=== PATIENT | male | born 1950 | race Caucasian/White ===

== ENCOUNTER 2017-09-16 11:43 | Emergency (ER) | payer BC ==
[~2017-09-16] VITALS: Ht 182.9 cm; Wt 83.9 kg
[~2017-09-16 11:43] MED LIST: ALBU90OI6 INH; AMOCLA875 PO; BENZ100A; BISA5EC PO; ESOM20 PO; FERR325 PO; FLUSAL1005 INH; Flonase 0.05% N16 GM; HYDACE5 PO; HYDACE7.5 PO; LEVFLO500 PO; LEVSOD75; LEVSOD75 PO; LEVSOD88 PO; LORA1 PO; METR500 PO; NEXIUM 40MG PO; RABE20; RXHYDACE PO; RXPROM25 PO; TRAZ50 PO; VITAMIN B12 PO; VITAMIN C PO; VITAMIN D PO; WARF10 PO; [UNRECOGNIZED DRUG - OTHER]
[2017-09-16] MEDS ORDERED: IBUP800 PO (12:26)
[2017-09-16] MEDS ORDERED: Prednisone20 MG PO (12:26)
== END 2017-09-16 13:08 | disposition home or self-care (01) ==
LOC: ER 11:43
DX: G89.29 Other chronic pain (principal); M54.5 Low back pain; J45.909 Unspecified asthma, uncomplicated; Z88.0 Allergy status to penicillin; Z88.2 Allergy status to sulfonamides; Z88.1 Allergy status to other antibiotic agents; Z88.8 Allergy status to other drugs, medicaments and biological substances; Z79.899 Other long term (current) drug therapy
CPT/HCPCS: 96372; 99283; J1885

== ENCOUNTER 2017-12-12 19:55 | Inpatient (IN) | payer BC, MEDICARE ==
[~2017-12-12] VITALS: Ht 182.9 cm; Wt 84.3 kg
[~2017-12-12 19:55] MED LIST changes: +IBUP800 PO; +Prednisone20 MG PO
[2017-12-12 20:31] LABS: BASOPHILS ABSOLUTE AUTO 0.07 K/mm3 (0.00-0.23); BASOPHILS PERCENT AUTO 0 % (0-2); EOSINOPHILS ABSOLUTE AUTO 0.07 K/mm3 (0.00-0.68); EOSINOPHILS PERCENT AUTO 0 % (0-6); Hematocrit 51.1 % (37.0-53.0); Hemoglobin 17.6 g/dL (13.5-17.5); IMMATURE GRAN ABSOLUTE AUTO 0.06 K/mm3 (0.00-0.10); IMMATURE GRAN PERCENT AUTO 0 % (0-1); LYMPHOCYTES ABSOLUTE AUTO 0.92 K/mm3 (0.84-5.20); LYMPHOCYTES PERCENT AUTO 6 % (21-46); MONOCYTES ABSOLUTE AUTO 0.79 K/mm3 (0.16-1.47); MONOCYTES PERCENT AUTO 5 % (4-13); Mean Corpuscular HGB 31.3 pg (26.0-34.0); Mean Corpuscular HGB Conc 34.4 g/dL (31.5-36.5); Mean Corpuscular Volume 91 fL (80-100); NEUTROPHILS ABSOLUTE AUTO 13.69 K/mm3 (1.96-9.15); NEUTROPHILS PERCENT AUTO 88 % (41-73); Platelet Count 373 K/mm3 (150-400); RDW Coefficient Variation 12.6 % (11.7-14.2); RDW Standard Deviation 42.1 fL (35.1-46.3); Red Blood Cell Count 5.62 M/mm3 (4.30-5.90)
[2017-12-12 20:53] LABS: Alanine Aminotransfer (ALT/SGP 29 U/L (12-78); Albumin, Blood 4.4 g/dL (3.4-5.0); Albumin/Globulin Ratio 1.1 (0.8-1.8); Alk Phos 87 U/L (50-136); Anion Gap 10 mmol/L (6-16); Aspartate Aminotrans (AST/SGOT 23 U/L (12-37); Bilirubin, Total 0.9 mg/dL (0.1-1.0); Blood Urea Nitrogen 25 mg/dL (8-24); CO2, Blood 24 mmol/L (21-32); Calcium, Blood 9.4 mg/dL (8.5-10.1); Chloride, Blood 106 mmol/L (98-108); Creatinine, Blood 1.19 mg/dL (0.60-1.20); Globulin, Blood 3.9 g/dL (2.2-4.0); Glomerular Filtration Rate >60 (60-); Glucose, Blood 131 mg/dL (70-99); Potassium, Blood 4.4 mmol/L (3.5-5.5); Sodium, Blood 140 mmol/L (136-145); Total Protein, Blood 8.3 g/dL (6.4-8.2)
[2017-12-12] MEDS ORDERED: ELIQUIS2.5 MG PO (21:11)
[2017-12-13 03:48] LABS: Hematocrit 49.5 % (37.0-53.0); Hemoglobin 16.5 g/dL (13.5-17.5); Mean Corpuscular HGB 30.3 pg (26.0-34.0); Mean Corpuscular HGB Conc 33.3 g/dL (31.5-36.5); Mean Corpuscular Volume 91 fL (80-100); Mean Platelet Volume 10.1 fL (9.1-12.4); Platelet Count 353 K/mm3 (150-400); RDW Coefficient Variation 12.7 % (11.7-14.2); RDW Standard Deviation 41.9 fL (35.1-46.3); Red Blood Cell Count 5.45 M/mm3 (4.30-5.90); White Blood Cell Count 14.48 K/mm3 (4.00-11.30)
[2017-12-13 04:05] LABS: Anion Gap 7 mmol/L (6-16); Blood Urea Nitrogen 24 mg/dL (8-24); Bun/Creatinine Ratio 19.4 (12.0-20.0); CO2, Blood 28 mmol/L (21-32); Calcium, Blood 8.6 mg/dL (8.5-10.1); Chloride, Blood 106 mmol/L (98-108); Creatinine, Blood 1.24 mg/dL (0.60-1.20); Glomerular Filtration Rate >60 (60-); Glucose, Blood 138 mg/dL (70-99); Potassium, Blood 4.5 mmol/L (3.5-5.5); Sodium, Blood 141 mmol/L (136-145)
[2017-12-14 04:20] LABS: BASOPHILS ABSOLUTE AUTO 0.06 K/mm3 (0.00-0.23); BASOPHILS PERCENT AUTO 1 % (0-2); EOSINOPHILS ABSOLUTE AUTO 0.33 K/mm3 (0.00-0.68); EOSINOPHILS PERCENT AUTO 3 % (0-6); Hematocrit 45.8 % (37.0-53.0); Hemoglobin 15.3 g/dL (13.5-17.5); IMMATURE GRAN ABSOLUTE AUTO 0.04 K/mm3 (0.00-0.10); IMMATURE GRAN PERCENT AUTO 0 % (0-1); LYMPHOCYTES ABSOLUTE AUTO 1.05 K/mm3 (0.84-5.20); LYMPHOCYTES PERCENT AUTO 11 % (21-46); MONOCYTES ABSOLUTE AUTO 0.73 K/mm3 (0.16-1.47); MONOCYTES PERCENT AUTO 8 % (4-13); Mean Corpuscular HGB 31.1 pg (26.0-34.0); Mean Corpuscular HGB Conc 33.4 g/dL (31.5-36.5); Mean Corpuscular Volume 93 fL (80-100); Mean Platelet Volume 9.9 fL (9.1-12.4); NEUTROPHILS PERCENT AUTO 77 % (41-73); Platelet Count 285 K/mm3 (150-400); RDW Coefficient Variation 12.7 % (11.7-14.2); RDW Standard Deviation 43.3 fL (35.1-46.3); Red Blood Cell Count 4.92 M/mm3 (4.30-5.90); White Blood Cell Count 9.61 K/mm3 (4.00-11.30)
[2017-12-14 04:58] LABS: Alanine Aminotransfer (ALT/SGP 28 U/L (12-78); Albumin, Blood 3.1 g/dL (3.4-5.0); Albumin/Globulin Ratio 1.1 (0.8-1.8); Alk Phos 68 U/L (50-136); Anion Gap 7 mmol/L (6-16); Aspartate Aminotrans (AST/SGOT 17 U/L (12-37); Bilirubin, Total 1.2 mg/dL (0.1-1.0); Blood Urea Nitrogen 23 mg/dL (8-24); Bun/Creatinine Ratio 19.8 (12.0-20.0); CO2, Blood 24 mmol/L (21-32); Calcium, Blood 7.9 mg/dL (8.5-10.1); Chloride, Blood 112 mmol/L (98-108); Creatinine, Blood 1.16 mg/dL (0.60-1.20); Globulin, Blood 2.9 g/dL (2.2-4.0); Glomerular Filtration Rate >60 (60-); Glucose, Blood 98 mg/dL (70-99); Potassium, Blood 4.5 mmol/L (3.5-5.5); Sodium, Blood 143 mmol/L (136-145)
== END 2017-12-14 14:50 | disposition home or self-care (01) | DRG 390 ==
LOC: ER 19:55 → SURS 12-13 01:39
PROVIDERS: Family Medicine; Internal Medicine
DX: K91.30 Postprocedural intestinal obstruction, unspecified as to partial versus complete (principal); D72.829 Elevated white blood cell count, unspecified; E03.9 Hypothyroidism, unspecified; N18.3 Chronic kidney disease, stage 3 (moderate); I25.2 Old myocardial infarction; Z79.899 Other long term (current) drug therapy; Z85.038 Personal history of other malignant neoplasm of large intestine; Z90.49 Acquired absence of other specified parts of digestive tract; Z86.718 Personal history of other venous thrombosis and embolism; Z85.09 Personal history of malignant neoplasm of other digestive organs; Z88.0 Allergy status to penicillin; Z88.1 Allergy status to other antibiotic agents; Z88.8 Allergy status to other drugs, medicaments and biological substances; Z88.2 Allergy status to sulfonamides; Z85.828 Personal history of other malignant neoplasm of skin
CPT/HCPCS: 36415; 74018; 74177; 80048; 80053; 83690; 85025; 85027; 93005; 93010; 96361; 96374; 96375; 96376; 99285; J1650; J2405; J2765; J3010; J3480; J7030; Q9967

== ENCOUNTER 2019-04-28 23:20 | Inpatient (IN) | payer MEDICARE, BC ==
[~2019-04-28] VITALS: Ht 182.9 cm; Wt 84.4 kg
[~2019-04-28 23:20] MED LIST changes: +ELIQUIS2.5 MG PO; +Kristalose20 GM PO; +Miralax17 GM PO
[2019-04-29 00:11] LABS: BASOPHILS ABSOLUTE AUTO 0.06 K/mm3 (0.00-0.23); BASOPHILS PERCENT AUTO 0 % (0-2); EOSINOPHILS ABSOLUTE AUTO 0.11 K/mm3 (0.00-0.68); EOSINOPHILS PERCENT AUTO 1 % (0-6); Hematocrit 51.3 % (37.0-53.0); Hemoglobin 17.1 g/dL (13.5-17.5); IMMATURE GRAN ABSOLUTE AUTO 0.06 K/mm3 (0.00-0.10); IMMATURE GRAN PERCENT AUTO 0 % (0-1); LYMPHOCYTES ABSOLUTE AUTO 0.86 K/mm3 (0.84-5.20); LYMPHOCYTES PERCENT AUTO 6 % (21-46); MONOCYTES ABSOLUTE AUTO 0.76 K/mm3 (0.16-1.47); MONOCYTES PERCENT AUTO 5 % (4-13); Mean Corpuscular HGB 31.8 pg (26.0-34.0); Mean Corpuscular HGB Conc 33.3 g/dL (31.5-36.5); Mean Corpuscular Volume 95 fL (80-100); Mean Platelet Volume 10.3 fL (9.1-12.4); NEUTROPHILS ABSOLUTE AUTO 13.47 K/mm3 (1.96-9.15); NEUTROPHILS PERCENT AUTO 88 % (41-73); Platelet Count 352 K/mm3 (150-400); RDW Coefficient Variation 12.6 % (11.7-14.2); RDW Standard Deviation 44.6 fL (35.1-46.3); Red Blood Cell Count 5.38 M/mm3 (4.30-5.90); White Blood Cell Count 15.32 K/mm3 (4.00-11.30)
[2019-04-29 00:29] LABS: Albumin, Blood 4.4 g/dL (3.4-5.0); Albumin/Globulin Ratio 1.2 (0.8-1.8); Bilirubin, Total 0.8 mg/dL (0.1-1.0); Bun/Creatinine Ratio 22.9 (12.0-20.0); Calcium, Blood 10.2 mg/dL (8.5-10.1); Creatinine, Blood 1.31 mg/dL (0.60-1.20); Globulin, Blood 3.8 g/dL (2.2-4.0); Potassium, Blood 4.2 mmol/L (3.5-5.5); Total Protein, Blood 8.2 g/dL (6.4-8.2)
--- NOTE | 2019-04-29 02:00 | NUR ---
PT ADMITTED FROM ED FOR SBO. A&O X4. VSS. PT C/O OF NAUSEA. NO EMESIS. C/O 12/17 PAIN IN ABD. WILL MEDICATE WITH FENTANYL PER EMAR. PT ORIENTED TO ROOM AND EDUCATED ALLIANCE MANAGER LIGHT. AT BEDSIDE. NPO WITH FLUIDS INFUSING.
--- NOTE | 2019-04-29 08:05 | NUR ---
lab at bedside pt asked when surgeon will be by will look at surg sched pt stated no flatus no emesis since er pt has tympanic bt's stated she has been able to hear them
[2019-04-29 08:21] LABS: BASOPHILS ABSOLUTE AUTO 0.06 K/mm3 (0.00-0.23); BASOPHILS PERCENT AUTO 0 % (0-2); EOSINOPHILS ABSOLUTE AUTO 0.05 K/mm3 (0.00-0.68); EOSINOPHILS PERCENT AUTO 0 % (0-6); Hemoglobin 15.3 g/dL (13.5-17.5); IMMATURE GRAN ABSOLUTE AUTO 0.06 K/mm3 (0.00-0.10); IMMATURE GRAN PERCENT AUTO 0 % (0-1); LYMPHOCYTES ABSOLUTE AUTO 0.63 K/mm3 (0.84-5.20); LYMPHOCYTES PERCENT AUTO 4 % (21-46); MONOCYTES ABSOLUTE AUTO 0.83 K/mm3 (0.16-1.47); MONOCYTES PERCENT AUTO 6 % (4-13); Mean Corpuscular HGB 31.3 pg (26.0-34.0); Mean Corpuscular HGB Conc 33.3 g/dL (31.5-36.5); Mean Corpuscular Volume 94 fL (80-100); Mean Platelet Volume 10.6 fL (9.1-12.4); NEUTROPHILS ABSOLUTE AUTO 13.07 K/mm3 (1.96-9.15); NEUTROPHILS PERCENT AUTO 89 % (41-73); Platelet Count 311 K/mm3 (150-400); RDW Coefficient Variation 12.6 % (11.7-14.2); RDW Standard Deviation 43.8 fL (35.1-46.3); Red Blood Cell Count 4.89 M/mm3 (4.30-5.90)
--- NOTE | 2019-04-29 09:53 | NUR ---
dr preston by to see pt
--- NOTE | 2019-04-29 11:42 | NUR ---
dr preston called pt only has marisel rabago stated he may throw that uo req iv
[2019-04-29 13:21] LABS: Anion Gap 3 mmol/L (6-16); Blood Urea Nitrogen 28 mg/dL (8-24); Bun/Creatinine Ratio 22.2 (12.0-20.0); CO2, Blood 27 mmol/L (21-32); Calcium, Blood 8.3 mg/dL (8.5-10.1); Chloride, Blood 112 mmol/L (98-108); Creatinine, Blood 1.26 mg/dL (0.60-1.20); Glomerular Filtration Rate >60 (60-); Glucose, Blood 108 mg/dL (70-99); Potassium, Blood 4.4 mmol/L (3.5-5.5); Sodium, Blood 142 mmol/L (136-145)
--- NOTE | 2019-04-29 14:45 | NUR ---
dr trimble by to see pt will cont with current therapy pt also talked with me her [facility] er visit she said she has his card with his name told her to bring it in and i will have pt advoacate come and talk with them
--- NOTE | 2019-04-29 15:44 | NUR ---
pt visiting with his family tortrung given
--- NOTE | 2019-04-29 16:35 | NUR ---
PT SLEEPING WAKES TO VERBAL STIMULI MEDS GIVEN SCHED PT STATED HE HAS PASSED MORE GAS NO BM YET OFFERED NAUSEA MEDS DECLINED AT THIS TIME
--- NOTE | 2019-04-30 06:28 | NUR ---
SUMMARY PT NOT WANTING TO TAKE PAIN MEDS TONIGHT. WARM BLANKET TO ABD IMPROVED COMFORT LEVEL.PASSING FLATUS AND REPORTED PASSED 2 SMALL PIECES PELLETTED STOOL TODAY.NO C/O NAUSEA. VOIDING MANUEL URINE.ENC AMBULATE FOR BSC DURING DAY PT WANTING TO REST AT NIGHT. AT BEDSIDE. SUPPPORTIVE.
[2019-04-30 07:57] LABS: BASOPHILS ABSOLUTE AUTO 0.05 K/mm3 (0.00-0.23); BASOPHILS PERCENT AUTO 1 % (0-2); EOSINOPHILS ABSOLUTE AUTO 0.42 K/mm3 (0.00-0.68); EOSINOPHILS PERCENT AUTO 6 % (0-6); Hematocrit 43.3 % (37.0-53.0); IMMATURE GRAN ABSOLUTE AUTO 0.01 K/mm3 (0.00-0.10); IMMATURE GRAN PERCENT AUTO 0 % (0-1); LYMPHOCYTES ABSOLUTE AUTO 1.79 K/mm3 (0.84-5.20); LYMPHOCYTES PERCENT AUTO 26 % (21-46); MONOCYTES PERCENT AUTO 10 % (4-13); Mean Corpuscular HGB 30.8 pg (26.0-34.0); Mean Corpuscular HGB Conc 32.3 g/dL (31.5-36.5); Mean Corpuscular Volume 95 fL (80-100); Mean Platelet Volume 10.4 fL (9.1-12.4); NEUTROPHILS ABSOLUTE AUTO 3.93 K/mm3 (1.96-9.15); NEUTROPHILS PERCENT AUTO 57 % (41-73); Platelet Count 278 K/mm3 (150-400); RDW Coefficient Variation 12.6 % (11.7-14.2); RDW Standard Deviation 43.8 fL (35.1-46.3); Red Blood Cell Count 4.55 M/mm3 (4.30-5.90)
[2019-04-30 08:21] LABS: Albumin, Blood 2.7 g/dL (3.4-5.0); Bilirubin, Total 0.7 mg/dL (0.1-1.0); Bun/Creatinine Ratio 16.5 (12.0-20.0); Calcium, Blood 7.8 mg/dL (8.5-10.1); Creatinine, Blood 1.27 mg/dL (0.60-1.20); Globulin, Blood 2.8 g/dL (2.2-4.0); Potassium, Blood 4.3 mmol/L (3.5-5.5)
[2019-04-30 09:26] LABS: Total Protein, Blood 5.5 g/dL (6.4-8.2)
--- NOTE | 2019-04-30 14:49 | NUR ---
ROUNDING: DR VÁSQUEZ IN TO SEE PATIENT. PT DESIRES TO DC HOME, DR VÁSQUEZ AGREEABLE. PT IV DC'D. PT TOLERATING REG DIET. PT PASSING FREQUENT LIQUID YELLOW STOOLS.
--- NOTE | 2019-04-30 16:45 | NUR ---
DISCHARGE: PT DC TO HOME AT THIS TIME WITH SPOUSE. PT VERBALIZED UNDERSTANDING OF MEDICATIONS, FOLLOW UP, PROBLEMS TO REPORT AND INSTRUCTIONS. PT LEFT AMBULATORY TO CAR WITH BELONGINGS.
== END 2019-04-30 16:45 | disposition home or self-care (01) | DRG 387 ==
LOC: ER 23:20 → SURS 04-29 01:20
PROVIDERS: Emergency Medicine; Internal Medicine Endocrinology, Diabetes & Metabolism; ADMIT Hospitalist
DX: K50.80 Crohn's disease of both small and large intestine without complications (principal); N18.3 Chronic kidney disease, stage 3 (moderate); E03.9 Hypothyroidism, unspecified; J45.909 Unspecified asthma, uncomplicated; K21.9 Gastro-esophageal reflux disease without esophagitis; E66.3 Overweight; Z68.25 Body mass index [BMI] 25.0-25.9, adult; Z86.718 Personal history of other venous thrombosis and embolism; Z88.0 Allergy status to penicillin; Z88.2 Allergy status to sulfonamides; Z88.8 Allergy status to other drugs, medicaments and biological substances
CPT/HCPCS: 36415; 74018; 74176; 80048; 80053; 85025; 94640; 94760; 96374; 96375; 99284-25; 99285-25; C9113; J1170; J1650; J2405; J2765; J3010; J7030

== ENCOUNTER 2019-09-05 22:42 | Inpatient (IN) | payer MEDICARE, BC ==
[~2019-09-05] VITALS: Ht 182.9 cm; Wt 84.2 kg
[~2019-09-05 22:42] MED LIST changes: +ASCO500 PO; +B-121000 MC3 PO; -LEVSOD88 PO; -VITAMIN B12 PO; -VITAMIN C PO; -VITAMIN D PO; +Vitamin D2000 UNIT PO
[2019-09-06 00:06] LABS: BASOPHILS ABSOLUTE AUTO 0.07 K/mm3 (0.00-0.23); BASOPHILS PERCENT AUTO 0 % (0-2); EOSINOPHILS ABSOLUTE AUTO 0.07 K/mm3 (0.00-0.68); EOSINOPHILS PERCENT AUTO 0 % (0-6); Hematocrit 53.2 % (37.0-53.0); IMMATURE GRAN ABSOLUTE AUTO 0.09 K/mm3 (0.00-0.10); IMMATURE GRAN PERCENT AUTO 1 % (0-1); LYMPHOCYTES ABSOLUTE AUTO 0.71 K/mm3 (0.84-5.20); LYMPHOCYTES PERCENT AUTO 4 % (21-46); MONOCYTES ABSOLUTE AUTO 0.91 K/mm3 (0.16-1.47); MONOCYTES PERCENT AUTO 5 % (4-13); Mean Corpuscular HGB 31.5 pg (26.0-34.0); Mean Corpuscular HGB Conc 33.8 g/dL (31.5-36.5); Mean Corpuscular Volume 93 fL (80-100); Mean Platelet Volume 10.2 fL (9.1-12.4); NEUTROPHILS ABSOLUTE AUTO 16.65 K/mm3 (1.96-9.15); NEUTROPHILS PERCENT AUTO 90 % (41-73); Platelet Count 322 K/mm3 (150-400); RDW Coefficient Variation 12.6 % (11.7-14.2); RDW Standard Deviation 43.5 fL (35.1-46.3); Red Blood Cell Count 5.72 M/mm3 (4.30-5.90)
[2019-09-06 00:24] LABS: Albumin, Blood 4.2 g/dL (3.4-5.0); Albumin/Globulin Ratio 1.1 (0.8-1.8); Bilirubin, Total 0.6 mg/dL (0.1-1.0); Bun/Creatinine Ratio 19.6 (12.0-20.0); Calcium, Blood 10.3 mg/dL (8.5-10.1); Creatinine, Blood 1.38 mg/dL (0.60-1.20); Globulin, Blood 3.8 g/dL (2.2-4.0); Potassium, Blood 4.8 mmol/L (3.5-5.5)
[2019-09-06 01:21] LABS: Source, Urine Clean Catch
[2019-09-06 01:26] LABS: Bilirubin, Urine Neg (Neg); Blood, Urine Neg (Neg); Glucose Qualitative, Urine Neg (Neg); Ketones, Urine 2+ (Neg); Leukocyte Esterase, Urine 1+ (Neg); Nitrite, Urine Neg (Neg); Protein, Urine 2+ (Neg); Urobilinogen, Urine 1+ (Normal)
[2019-09-06 01:33] LABS: Amorphous Light (0-Heavy); Appearance, Urine Hazy (Clear); Bacteria Few /hpf; Color, Urine Yellow (P-Yellow); Granular Casts 25-50 /lpf (0); Mucus Heavy (0-Heavy); Red Blood Cells, Urine Not Seen /hpf (0-2); Squamous Epithelial Cells Rare /hpf (Few); White Blood Cells, Urine 0-2 /hpf (0-5)
[2019-09-06] MEDS ORDERED: FLUT1DIS2 INH (03:55)
[2019-09-06] MEDS ORDERED: Colace100 MG PO (03:59)
[2019-09-06 04:59] LABS: BASOPHILS ABSOLUTE AUTO 0.05 K/mm3 (0.00-0.23); BASOPHILS PERCENT AUTO 0 % (0-2); EOSINOPHILS ABSOLUTE AUTO 0.04 K/mm3 (0.00-0.68); EOSINOPHILS PERCENT AUTO 0 % (0-6); Hematocrit 49.9 % (37.0-53.0); IMMATURE GRAN ABSOLUTE AUTO 0.05 K/mm3 (0.00-0.10); IMMATURE GRAN PERCENT AUTO 0 % (0-1); LYMPHOCYTES ABSOLUTE AUTO 0.99 K/mm3 (0.84-5.20); LYMPHOCYTES PERCENT AUTO 7 % (21-46); MONOCYTES ABSOLUTE AUTO 0.46 K/mm3 (0.16-1.47); MONOCYTES PERCENT AUTO 3 % (4-13); Mean Corpuscular HGB 31.3 pg (26.0-34.0); Mean Corpuscular HGB Conc 34.1 g/dL (31.5-36.5); Mean Corpuscular Volume 92 fL (80-100); Mean Platelet Volume 10.5 fL (9.1-12.4); NEUTROPHILS ABSOLUTE AUTO 13.64 K/mm3 (1.96-9.15); NEUTROPHILS PERCENT AUTO 90 % (41-73); Platelet Count 352 K/mm3 (150-400); RDW Coefficient Variation 12.8 % (11.7-14.2); Red Blood Cell Count 5.44 M/mm3 (4.30-5.90); White Blood Cell Count 15.23 K/mm3 (4.00-11.30)
[2019-09-06 05:15] LABS: International Normalized Ratio 0.95; Prothrombin Time Results 10.2 Sec (9.7-11.5)
[2019-09-06 05:17] LABS: Albumin, Blood 3.8 g/dL (3.4-5.0); Anion Gap 7 mmol/L (6-16); Blood Urea Nitrogen 28 mg/dL (8-24); Bun/Creatinine Ratio 23.9 (12.0-20.0); CO2, Blood 23 mmol/L (21-32); Calcium, Blood 9.4 mg/dL (8.5-10.1); Chloride, Blood 109 mmol/L (98-108); Creatinine, Blood 1.17 mg/dL (0.60-1.20); Glomerular Filtration Rate >60 (60-); Glucose, Blood 147 mg/dL (70-99); Phosphorus, Blood 3.3 mg/dL (2.5-4.9); Potassium, Blood 4.3 mmol/L (3.5-5.5); Sodium, Blood 139 mmol/L (136-145)
--- NOTE | 2019-09-06 06:23 | NUR ---
SHIFT SUMMARY: VSS. AFEB. A/OX4. COMMUNICATES NEEDS APPROPRIATELY. MED X 1 FOR BOTH NAUSEA AND ABD PAIN W/ GOOD EFFECT. BT HYPOACTIVE. ABD TENDER THROUGHOUT W/PALPATION. 1 LARGE EMESIS UPON ARRIVAL TO UNIT. PT UP INDEPENDENTLY IN ROOM. IV FLUIDS AND HEPARIN INFUSING ORDERED. GI CONSULT CALLED TO DR. GONSALVES'S ANSWERING SERVICE. PT ORIENTED TO UNIT. WILL CONT TO MONITOR.
--- NOTE | 2019-09-06 17:07 | NUR ---
SHIFT SUMMARY PT AXO, PLEASANT AND COOPERATIVE WITH CARE. PT COMPLAINED OF ABDOMINAL PRESSURE IN LEFT UPPER AND LOWER QUADRANT AND SHARP PAIN IN LOWER R. QUADRANT OF ABDOMEN. PT ALSO COMPLAINED OF NAUSEA AND VOMITING AND ANXIETY, MEDICATED PER EMAR. NG TUBE PLACED BY DR. MEREDITH WHO ALSO PLACED HIM ON SUCTION. PATIENT CURRENLY ON LOW INTERMITTENT SUCTION. PT HAS HAD 200ML OF LIGHT BROWN FLUID FROM NG TUBE. THERAPEUTIC COMMUNICATION AND ACTIVE LISTENING UTILIZED. PT SLEEPING COMFORTABLY AT THIS TIME. BED IN LOW POSITION, CALL LIGHT WITHIN REACH.
--- NOTE | 2019-09-06 19:49 | NUR ---
RECEIVED CRITICAL PTT NOTIFICATION. PHARMACIST NOTIFIED. REDRAW ORDERED TO VERIFY PTT. HEPARIN DOSE PENDING REDRAW RESULT.
--- NOTE | 2019-09-07 04:01 | NUR ---
SHIFT SUMMARY: VSS. AFEB. A/OX4. COMMUNICATES NEEDS APPROPRIATELY. NGT W/LOW, INTERMITTENT SUCTION PRODUCING MODERATE AMTS OF MEDIUM BROWN LIQUID. PT REMAINS NPO. IV HEPARIN AND LR CONTINUOUSLY ORDERED. PT STATES ABD PAIN HAS IMPROVED BUT CONT TO BE TENDER W/PALPATION- ESPECIALLY IN LUQ AND LLQ. PASSING GAS. BT HYPERACTIVE. FREQUENT HICCUPING. PT ANXIOUS TONIGHT- STATES THE NGT ITSELF AND THE PRESSURE IT PLACES IN HIS NOSE IS VERY IRRITATING AND CAUSES HIM GREAT ANXIETY. ATIVAN ADMINISTERED. HE DOES NOT FEEL HE CAN KEEP NGT IN MUCH LONGER BUT HAS NOT REQUESTED IT BE REMOVED TONIGHT. PT SLEEPING INTERMITTENTLY. WILL CONT TO MONITOR.
[2019-09-07 09:02] LABS: BASOPHILS ABSOLUTE AUTO 0.06 K/mm3 (0.00-0.23); BASOPHILS PERCENT AUTO 1 % (0-2); EOSINOPHILS ABSOLUTE AUTO 0.44 K/mm3 (0.00-0.68); EOSINOPHILS PERCENT AUTO 4 % (0-6); Hematocrit 46.1 % (37.0-53.0); IMMATURE GRAN ABSOLUTE AUTO 0.04 K/mm3 (0.00-0.10); IMMATURE GRAN PERCENT AUTO 0 % (0-1); LYMPHOCYTES ABSOLUTE AUTO 1.88 K/mm3 (0.84-5.20); LYMPHOCYTES PERCENT AUTO 16 % (21-46); MONOCYTES ABSOLUTE AUTO 1.06 K/mm3 (0.16-1.47); MONOCYTES PERCENT AUTO 9 % (4-13); Mean Corpuscular HGB 30.6 pg (26.0-34.0); Mean Corpuscular HGB Conc 32.5 g/dL (31.5-36.5); Mean Corpuscular Volume 94 fL (80-100); Mean Platelet Volume 10.9 fL (9.1-12.4); NEUTROPHILS ABSOLUTE AUTO 8.21 K/mm3 (1.96-9.15); NEUTROPHILS PERCENT AUTO 70 % (41-73); Platelet Count 308 K/mm3 (150-400); RDW Coefficient Variation 12.8 % (11.7-14.2); White Blood Cell Count 11.69 K/mm3 (4.00-11.30)
[2019-09-07 09:10] LABS: Anion Gap 7 mmol/L (6-16); Blood Urea Nitrogen 35 mg/dL (8-24); CO2, Blood 27 mmol/L (21-32); Calcium, Blood 8.5 mg/dL (8.5-10.1); Chloride, Blood 110 mmol/L (98-108); Creatinine, Blood 1.25 mg/dL (0.60-1.20); Glomerular Filtration Rate >60 (60-); Glucose, Blood 108 mg/dL (70-99); Potassium, Blood 3.8 mmol/L (3.5-5.5); Sodium, Blood 144 mmol/L (136-145)
--- NOTE | 2019-09-07 11:00 | NUR ---
PATIENT REQUESTED THIS RN SIT WITH PATIENT AND HOLD HIS HAND, SAID IT PROVIDES COMFORT. THIS RN SAT WITH PATIENT. TALKED ABOUT CARS, FAMILY NAMES, ETC. GIVEN IV ZOFRAN FOR NAUSEA. PATIENT NG LEAKING. REFUSED LINEN CHANGE AT THIS TIME. WILL CHANGE LINEN WHEN PATIENT GOES OUT FOR IMAGING THIS AFTERNOON.
--- NOTE | 2019-09-07 14:59 | NUR ---
PATIENT RETURNED FROM SBFT. NEW ORDERS NOTED FOR CL DIET AND DC NG TUBE
--- NOTE | 2019-09-07 17:59 | NUR ---
SHIFT SUMMARY ASSUMED CARE OF PATIENT AROUND 1400. PATIENT COMPLETED SBFT AND NGT REMOVED. PATIENT HAS HAD MULTIPLE BMS TODAY AND PASSING GAS. TOLERATING CLEAR LIQUID DIET WELL. HEPARIN GTT AND LR CONTINUED FOR TODAY. PATIENT DENIES PAIN AND REPORTS ABDOMEN SOFT AND NOT DISTENDED IN COMPARISON TO PREVIOUS DAY. VSS
[2019-09-08 05:36] LABS: BASOPHILS ABSOLUTE AUTO 0.06 K/mm3 (0.00-0.23); BASOPHILS PERCENT AUTO 1 % (0-2); EOSINOPHILS ABSOLUTE AUTO 0.62 K/mm3 (0.00-0.68); EOSINOPHILS PERCENT AUTO 7 % (0-6); Hematocrit 40.2 % (37.0-53.0); Hemoglobin 13.3 g/dL (13.5-17.5); IMMATURE GRAN ABSOLUTE AUTO 0.03 K/mm3 (0.00-0.10); IMMATURE GRAN PERCENT AUTO 0 % (0-1); LYMPHOCYTES ABSOLUTE AUTO 2.03 K/mm3 (0.84-5.20); LYMPHOCYTES PERCENT AUTO 23 % (21-46); MONOCYTES ABSOLUTE AUTO 0.76 K/mm3 (0.16-1.47); MONOCYTES PERCENT AUTO 8 % (4-13); Mean Corpuscular HGB 30.9 pg (26.0-34.0); Mean Corpuscular HGB Conc 33.1 g/dL (31.5-36.5); Mean Corpuscular Volume 94 fL (80-100); Mean Platelet Volume 10.3 fL (9.1-12.4); NEUTROPHILS ABSOLUTE AUTO 5.54 K/mm3 (1.96-9.15); NEUTROPHILS PERCENT AUTO 61 % (41-73); Platelet Count 239 K/mm3 (150-400); RDW Coefficient Variation 12.7 % (11.7-14.2); RDW Standard Deviation 43.7 fL (35.1-46.3); White Blood Cell Count 9.04 K/mm3 (4.00-11.30)
[2019-09-08 06:06] LABS: Anion Gap 5 mmol/L (6-16); Blood Urea Nitrogen 25 mg/dL (8-24); Bun/Creatinine Ratio 21.7 (12.0-20.0); CO2, Blood 27 mmol/L (21-32); Calcium, Blood 7.9 mg/dL (8.5-10.1); Chloride, Blood 109 mmol/L (98-108); Creatinine, Blood 1.15 mg/dL (0.60-1.20); Glomerular Filtration Rate >60 (60-); Glucose, Blood 97 mg/dL (70-99); Potassium, Blood 3.6 mmol/L (3.5-5.5); Sodium, Blood 141 mmol/L (136-145)
--- NOTE | 2019-09-08 06:26 | NUR ---
SHIFT SUMMARY PATIENT ALERT AND ORIENTED. IV REMOVED FROM RIGHT WRIST DUE TO INFILTRATION AND NEW IV PLACED IN RIGHT UPPER ARM WHICH IS PATENT AND CURRENTLY INFUSING WITH HEPARIN AT 17.5 UNITS/KILOGRAM/HR. IV IN THE RIGHT FOREARM IS PATENT AND INFUSING WITH LACTATED RINGERS AT 100 ML/HR. WAS MEDICATED PER EMAR FOR PAIN WHICH WAS EFFECTIVE AND ALLOWED HIM TO GET SOME DECENT SLEEP OVERNIGHT. BED IN LOWEST POSITION WITH WHEELS LOCKED. CALL LIGHT WITHIN REACH. REPORT GIVEN TO ONCOMING RN.
--- NOTE | 2019-09-08 10:33 | NUR ---
DR YE REQUESTED SURGERY TO BE NOTIFIED R/T PT BEING CLEARED FOR D/C? DR VARGAS'S OFFICE NOTIFIED. DR VARGAS THEN HERE TO SEE PT. VERBAL ORDER GIVEN TO LET DR YE KNOW THAT PT IS CLEARED FOR D/C BY SURGERY.
[2019-09-08] MEDS ORDERED: LEVO-T88 MCG PO (11:05)
--- NOTE | 2019-09-08 13:11 | NUR ---
SHIFT SUMMARY PT RESTING QUIETLY AT START OF SHIFT. NGT REMOVED YESTERDAY. PT TOLERATING CL DIET. UP TO BTHRM HAVING SEVERAL BM'S. HEPARIN DRIP AND LR STILL INFUSING PER EMAR. PT REQUESTING TO ADVANCE DIET AND TAKE A SHOWER. DR YE HERE TO SEE PT AND LATER DR VARGAS. PT CLEARED FOR D/C BY SURGERY AND LATER BY DR YE. PT'S DIET ADVANCED TO FL; PT TOLERATED WELL. PT UP TO SHOWER PRIOR TO D/C AND REPORTED 2 MORE BM'S WITH STOOL. IV SITES D/C'D AND D/C PAPERS DISCUSSED WITH PT. NO NEW MEDICAITONS ORDERED AT D/C. PT ASSISTED OUT TO FAMILY VIA W/C BY LAUNDRETTE OWNER. NO C/O. PT GRATEFUL FOR CARE.
[2019-09-16] MEDS ORDERED: FERSU300 PO (21:51)
== END 2019-09-08 12:20 | disposition home or self-care (01) | DRG 390 ==
LOC: ER 22:42 → MEDS 09-06 03:30 → ENPENDDIS 09-08 11:06 → MEDS 09-08 12:20
PROVIDERS: Emergency Medicine; Family Medicine; ADMIT Family Medicine
DX: K56.51 Intestinal adhesions [bands], with partial obstruction (principal); N18.3 Chronic kidney disease, stage 3 (moderate); E03.9 Hypothyroidism, unspecified; J45.909 Unspecified asthma, uncomplicated; Z86.718 Personal history of other venous thrombosis and embolism; F41.9 Anxiety disorder, unspecified
CPT/HCPCS: 36415; 74176; 74250; 80048; 80053; 80069; 81001; 83690; 85025; 85610; 85730; 87086; 94640; 94760; 96361; 96374; 96375; 99285-25; C9113; J1644; J2060; J2405; J2765; J3010; J7030; J7120

== ENCOUNTER 2019-10-05 22:34 | Inpatient (IN) | payer MEDICARE, BC ==
[~2019-10-05] VITALS: Ht 182.9 cm; Wt 82.2 kg
[~2019-10-05 22:34] MED LIST changes: +Colace100 MG PO; +FERSU300 PO; +FLUT1DIS2 INH; +LEVO-T88 MCG PO
[2019-10-05 23:00] LABS: BASOPHILS ABSOLUTE AUTO 0.11 K/mm3 (0.00-0.23); BASOPHILS PERCENT AUTO 1 % (0-2); EOSINOPHILS ABSOLUTE AUTO 0.25 K/mm3 (0.00-0.68); EOSINOPHILS PERCENT AUTO 2 % (0-6); Hematocrit 52.3 % (37.0-53.0); Hemoglobin 17.4 g/dL (13.5-17.5); IMMATURE GRAN ABSOLUTE AUTO 0.05 K/mm3 (0.00-0.10); IMMATURE GRAN PERCENT AUTO 0 % (0-1); LYMPHOCYTES ABSOLUTE AUTO 1.36 K/mm3 (0.84-5.20); LYMPHOCYTES PERCENT AUTO 10 % (21-46); MONOCYTES ABSOLUTE AUTO 0.85 K/mm3 (0.16-1.47); MONOCYTES PERCENT AUTO 6 % (4-13); Mean Corpuscular HGB Conc 33.3 g/dL (31.5-36.5); Mean Corpuscular Volume 93 fL (80-100); NEUTROPHILS ABSOLUTE AUTO 10.69 K/mm3 (1.96-9.15); NEUTROPHILS PERCENT AUTO 80 % (41-73); Platelet Count 359 K/mm3 (150-400); RDW Coefficient Variation 12.7 % (11.7-14.2); RDW Standard Deviation 43.8 fL (35.1-46.3); Red Blood Cell Count 5.61 M/mm3 (4.30-5.90); White Blood Cell Count 13.31 K/mm3 (4.00-11.30)
[2019-10-05 23:19] LABS: Albumin, Blood 4.3 g/dL (3.4-5.0); Albumin/Globulin Ratio 1.2 (0.8-1.8); Bilirubin, Total 0.6 mg/dL (0.1-1.0); Bun/Creatinine Ratio 22.5 (12.0-20.0); Calcium, Blood 10.1 mg/dL (8.5-10.1); Creatinine, Blood 1.38 mg/dL (0.60-1.20); Globulin, Blood 3.7 g/dL (2.2-4.0); Potassium, Blood 4.5 mmol/L (3.5-5.5)
[2019-10-06 04:59] LABS: Hematocrit 47.6 % (37.0-53.0); Hemoglobin 15.7 g/dL (13.5-17.5); Mean Corpuscular HGB 30.8 pg (26.0-34.0); Mean Corpuscular Volume 93 fL (80-100); Mean Platelet Volume 9.9 fL (9.1-12.4); Platelet Count 296 K/mm3 (150-400); RDW Coefficient Variation 12.8 % (11.7-14.2); RDW Standard Deviation 44.2 fL (35.1-46.3); White Blood Cell Count 11.45 K/mm3 (4.00-11.30)
[2019-10-06 05:29] LABS: Alanine Aminotransfer (ALT/SGP 26 U/L (12-78); Albumin, Blood 3.6 g/dL (3.4-5.0); Albumin/Globulin Ratio 1.2 (0.8-1.8); Alk Phos 63 U/L (50-136); Anion Gap 6 mmol/L (6-16); Aspartate Aminotrans (AST/SGOT 17 U/L (12-37); Bilirubin, Total 0.8 mg/dL (0.1-1.0); Blood Urea Nitrogen 29 mg/dL (8-24); Bun/Creatinine Ratio 25.4 (12.0-20.0); CO2, Blood 25 mmol/L (21-32); Calcium, Blood 8.7 mg/dL (8.5-10.1); Chloride, Blood 109 mmol/L (98-108); Creatinine, Blood 1.14 mg/dL (0.60-1.20); Globulin, Blood 3.1 g/dL (2.2-4.0); Glomerular Filtration Rate >60 (60-); Glucose, Blood 122 mg/dL (70-99); Potassium, Blood 4.4 mmol/L (3.5-5.5); Sodium, Blood 140 mmol/L (136-145); Total Protein, Blood 6.7 g/dL (6.4-8.2)
[2019-10-07 04:56] LABS: BASOPHILS ABSOLUTE AUTO 0.07 K/mm3 (0.00-0.23); BASOPHILS PERCENT AUTO 1 % (0-2); EOSINOPHILS ABSOLUTE AUTO 0.35 K/mm3 (0.00-0.68); EOSINOPHILS PERCENT AUTO 6 % (0-6); Hematocrit 45.6 % (37.0-53.0); Hemoglobin 14.7 g/dL (13.5-17.5); IMMATURE GRAN ABSOLUTE AUTO 0.02 K/mm3 (0.00-0.10); IMMATURE GRAN PERCENT AUTO 0 % (0-1); LYMPHOCYTES ABSOLUTE AUTO 1.64 K/mm3 (0.84-5.20); LYMPHOCYTES PERCENT AUTO 28 % (21-46); MONOCYTES ABSOLUTE AUTO 0.68 K/mm3 (0.16-1.47); MONOCYTES PERCENT AUTO 12 % (4-13); Mean Corpuscular HGB 30.6 pg (26.0-34.0); Mean Corpuscular HGB Conc 32.2 g/dL (31.5-36.5); Mean Corpuscular Volume 95 fL (80-100); Mean Platelet Volume 10.3 fL (9.1-12.4); NEUTROPHILS ABSOLUTE AUTO 3.15 K/mm3 (1.96-9.15); NEUTROPHILS PERCENT AUTO 53 % (41-73); Platelet Count 286 K/mm3 (150-400); RDW Coefficient Variation 12.8 % (11.7-14.2); Red Blood Cell Count 4.81 M/mm3 (4.30-5.90); White Blood Cell Count 5.91 K/mm3 (4.00-11.30)
[2019-10-07] MEDS ORDERED: MIRALAX17 GM PO (11:51)
== END 2019-10-07 12:55 | disposition home or self-care (01) | DRG 390 ==
LOC: ER 22:34 → MEDS 22:36 → ER 10-06 00:44 → MEDS 10-06 00:44 → ENPENDDIS 10-07 11:00 → MEDS 10-07 12:55
PROVIDERS: Physician Assistant; Student in an Organized Health Care Education/Training Program; ADMIT Internal Medicine
PROC: 0D9670Z Drainage of Stomach with Drainage Device, Via Natural or Artificial Opening (ICD-10-PCS; principal; 2019-10-06)
DX: K56.600 Partial intestinal obstruction, unspecified as to cause (principal); K56.7 Ileus, unspecified; N18.3 Chronic kidney disease, stage 3 (moderate); E03.9 Hypothyroidism, unspecified; J45.909 Unspecified asthma, uncomplicated; Z86.718 Personal history of other venous thrombosis and embolism; Z88.0 Allergy status to penicillin; Z88.2 Allergy status to sulfonamides; Z88.8 Allergy status to other drugs, medicaments and biological substances; Z79.01 Long term (current) use of anticoagulants; Z79.51 Long term (current) use of inhaled steroids; Z85.038 Personal history of other malignant neoplasm of large intestine
CPT/HCPCS: 36415; 43752; 74176; 80053; 85025; 85027; 94640; 94760; 96361-59; 96374-59; 96375-59; 96376; 99285-25; G0378; J1170; J1200; J1650; J2405; J3010; J7030

== ENCOUNTER 2020-04-11 19:34 | Emergency (ER) | payer MEDICARE, BC ==
[~2020-04-11] VITALS: Ht 182.9 cm; Wt 83.0 kg
[~2020-04-11 19:34] MED LIST changes: +MIRALAX17 GM PO
[2020-04-11 20:06] LABS: Source, Urine Clean Catch
[2020-04-11 20:09] LABS: Appearance, Urine Cloudy (Clear); Bilirubin, Urine Neg (Neg); Blood, Urine 5+ (Neg); Color, Urine Amber (P-Yellow); Glucose Qualitative, Urine Neg (Neg); Ketones, Urine 1+ (Neg); Leukocyte Esterase, Urine 1+ (Neg); Nitrite, Urine Neg (Neg); Protein, Urine 3+ (Neg); Urobilinogen, Urine NORM (Normal)
[2020-04-11 20:18] LABS: Bacteria Many /hpf; Red Blood Cells, Urine TNTC /hpf (0-2); Squamous Epithelial Cells Few /hpf (Few); Yeast/Fungi Urine Few /hpf
[2020-04-11 22:00] LABS: BASOPHILS ABSOLUTE AUTO 0.08 K/mm3 (0.00-0.23); BASOPHILS PERCENT AUTO 1 % (0-2); EOSINOPHILS ABSOLUTE AUTO 0.28 K/mm3 (0.00-0.68); EOSINOPHILS PERCENT AUTO 4 % (0-6); Hematocrit 46.9 % (37.0-53.0); Hemoglobin 15.4 g/dL (13.5-17.5); IMMATURE GRAN ABSOLUTE AUTO 0.03 K/mm3 (0.00-0.10); IMMATURE GRAN PERCENT AUTO 0 % (0-1); LYMPHOCYTES ABSOLUTE AUTO 1.68 K/mm3 (0.84-5.20); LYMPHOCYTES PERCENT AUTO 22 % (21-46); MONOCYTES ABSOLUTE AUTO 0.79 K/mm3 (0.16-1.47); MONOCYTES PERCENT AUTO 10 % (4-13); Mean Corpuscular HGB 30.7 pg (26.0-34.0); Mean Corpuscular HGB Conc 32.8 g/dL (31.5-36.5); Mean Corpuscular Volume 93 fL (80-100); Mean Platelet Volume 10.1 fL (9.1-12.4); NEUTROPHILS ABSOLUTE AUTO 4.78 K/mm3 (1.96-9.15); NEUTROPHILS PERCENT AUTO 63 % (41-73); Platelet Count 316 K/mm3 (150-400); RDW Coefficient Variation 12.6 % (11.7-14.2); RDW Standard Deviation 43.3 fL (35.1-46.3); Red Blood Cell Count 5.02 M/mm3 (4.30-5.90); White Blood Cell Count 7.64 K/mm3 (4.00-11.30)
[2020-04-11 22:19] LABS: Albumin, Blood 3.7 g/dL (3.4-5.0); Albumin/Globulin Ratio 1.1 (0.8-1.8); Bilirubin, Total 0.3 mg/dL (0.1-1.0); Bun/Creatinine Ratio 20.9 (12.0-20.0); Creatinine, Blood 1.34 mg/dL (0.60-1.20); Globulin, Blood 3.3 g/dL (2.2-4.0)
[2020-04-11] MEDS ORDERED: NITR100CA PO (22:32)
== END 2020-04-11 22:55 | disposition home or self-care (01) ==
LOC: ER 19:34
PROVIDERS: Physician Assistant
DX: N30.91 Cystitis, unspecified with hematuria (principal); Z79.01 Long term (current) use of anticoagulants; Z79.899 Other long term (current) drug therapy
CPT/HCPCS: 36415; 80053; 81001; 85025; 87086; 99283

== ENCOUNTER 2020-08-13 10:54 | Emergency (ER) | payer MEDICARE, BC ==
[~2020-08-13] VITALS: Ht 182.9 cm; Wt 83.9 kg
[~2020-08-13 10:54] MED LIST changes: +NITR100CA PO
== END 2020-08-13 11:58 | disposition home or self-care (01) ==
LOC: ER 10:54
DX: H43.819 Vitreous degeneration, unspecified eye (principal); N18.30 Chronic kidney disease, stage 3 unspecified; E03.9 Hypothyroidism, unspecified; Z88.0 Allergy status to penicillin; Z88.8 Allergy status to other drugs, medicaments and biological substances; Z88.2 Allergy status to sulfonamides; Z88.1 Allergy status to other antibiotic agents; Z79.899 Other long term (current) drug therapy; Z86.718 Personal history of other venous thrombosis and embolism
CPT/HCPCS: 99283

== ENCOUNTER 2020-08-25 01:26 | Inpatient (IN) | payer MEDICARE ==
[~2020-08-25] VITALS: Ht 182.9 cm; Wt 84.0 kg
[2020-08-25 02:23] LABS: BASOPHILS ABSOLUTE AUTO 0.07 K/mm3 (0.00-0.23); BASOPHILS PERCENT AUTO 1 % (0-2); EOSINOPHILS ABSOLUTE AUTO 0.09 K/mm3 (0.00-0.68); EOSINOPHILS PERCENT AUTO 1 % (0-6); Hematocrit 49.1 % (37.0-53.0); IMMATURE GRAN ABSOLUTE AUTO 0.05 K/mm3 (0.00-0.10); IMMATURE GRAN PERCENT AUTO 0 % (0-1); LYMPHOCYTES ABSOLUTE AUTO 0.85 K/mm3 (0.84-5.20); LYMPHOCYTES PERCENT AUTO 6 % (21-46); MONOCYTES ABSOLUTE AUTO 0.82 K/mm3 (0.16-1.47); MONOCYTES PERCENT AUTO 5 % (4-13); Mean Corpuscular HGB 31.4 pg (26.0-34.0); Mean Corpuscular HGB Conc 34.6 g/dL (31.5-36.5); Mean Corpuscular Volume 91 fL (80-100); Mean Platelet Volume 9.8 fL (9.1-12.4); NEUTROPHILS ABSOLUTE AUTO 13.21 K/mm3 (1.96-9.15); NEUTROPHILS PERCENT AUTO 88 % (41-73); Platelet Count 330 K/mm3 (150-400); RDW Coefficient Variation 12.5 % (11.7-14.2); RDW Standard Deviation 41.1 fL (35.1-46.3); Red Blood Cell Count 5.41 M/mm3 (4.30-5.90); White Blood Cell Count 15.09 K/mm3 (4.00-11.30)
[2020-08-25 02:41] LABS: Alanine Aminotransfer (ALT/SGP 39 U/L (12-78); Albumin, Blood 4.1 g/dL (3.4-5.0); Albumin/Globulin Ratio 1.1 (0.8-1.8); Alk Phos 74 U/L (50-136); Anion Gap 7 mmol/L (6-16); Aspartate Aminotrans (AST/SGOT 34 U/L (12-37); Bilirubin, Total 0.7 mg/dL (0.1-1.0); Blood Urea Nitrogen 32 mg/dL (8-24); Bun/Creatinine Ratio 25.6 (12.0-20.0); CO2, Blood 26 mmol/L (21-32); Chloride, Blood 106 mmol/L (98-108); Creatinine, Blood 1.25 mg/dL (0.60-1.20); Globulin, Blood 3.7 g/dL (2.2-4.0); Glomerular Filtration Rate >60 (60-); Glucose, Blood 144 mg/dL (70-99); Potassium, Blood 4.2 mmol/L (3.5-5.5); Sodium, Blood 139 mmol/L (136-145); Total Protein, Blood 7.8 g/dL (6.4-8.2)
[2020-08-25] MEDS ORDERED: ELIQUIS2.5 M1 PO (03:59)
--- NOTE | 2020-08-25 05:37 | NUR ---
MOLD FILLER PLASTIC DOLLS SUMMARY NEW ADMIT FROM THE ED TONIGHT. AAOX4 AND VERY PLEASANT. STANDBY ASSIST WHEN AMBULATING. ADMITTED FOR SBO, PT HAS HX OF SEVERAL. NG TUBE PLACED WHILE PT IN ED, NO DRAINAGE COMING FROM TUBE. PT STATES HE HASN'T EATEN MUCH OF ANYTHING THE LAST FEW DAYS AND HE HAS BEEN VOMITING SMALL AMOUNTS OF BILE FOR THE LAST DAY OR SO. PT RECIEVED DILAUDID 1MG IV IN ED AND NOW REPORTS PAIN AT A TOLERABLE LEVEL OF A 4/10. PT HAS HAD SOME INTERMITTENT HICCUPS SINCE ARRIVING TO THE FLOOR. NSR ON TELE. VSS, WILL CONTINUE TO MONITOR.
[2020-08-25 07:30] LABS: International Normalized Ratio 0.96; Prothrombin Time Results 10.3 Sec (9.7-11.5)
--- NOTE | 2020-08-25 16:53 | NUR ---
ADMIT: 08/25/20 DISCHARGE: DX: Small bowel obstruction CC:ADMIT: 10/05/19 DISCHARGE: 10/07/19 DX: SBO ADMIT: 09/16/19 DISCHARGE: 09/18/19 DX: HYDRATION AND SBO SHA CALL: MET WITH REHANA, CALL HIM AT HOME FOR TOCRESIDENCE: HomeCAREGIVER: Queta DALLAS, Spouse / Partner, [phone]: acute hemorrhagic cystitis, CKD-stage 3, DVT, enteritis small intestine, GERD, see listDME: noneCCM[facility] 2012SUMMARY: Admit: - per chart review with Dr. Novak, pt had NG tube placed. CT scan showed SBO. Pt will have surgical consult and will be staying for a couple more days. -mitchell
--- NOTE | 2020-08-25 17:26 | NUR ---
PT IS A/OX3, PLEASANT AND COOPERATIVE, THE PT IS UP IND IN HIS ROOM, THE PT APPEARS TO BE BREATHING EASILY ON RA AT THIS TIME, THIS AM THE PT HAD AN NG TUBE TO LOW INTERMITTEN SUCTION HOWEVER HAD NO OUTPUT FROM THAT, X-RAY SHOWED THE THE TUBE HAD CURLED UP INTO THE PT ESOPHAGUS, DR. BIRCH ATTEMPTED TO STRAIGHTEN OUT THE AND A REPEAT X-RAY SHOWED THAT IT WAS STILL KINKED PER PT REQUEST THE TUBE WAS DC'D AND NOT REENTERED, SINCE THE REMOVAL THE PT HAS ACTUALL HAD SOME GAS AND A BM, THE PT WAS ENCOURAGED TO AMBULATE AND SIPS OF CLEARS WERE GIVEN PER DR. PRASAD REQUEST, IS AT THE BEDSIDE, CALL LIGHT IN REACH, WILL CONTINUE TO MONITOR AND ASSESS FOR CHANGES
[2020-08-26 05:00] LABS: BASOPHILS ABSOLUTE AUTO 0.05 K/mm3 (0.00-0.23); BASOPHILS PERCENT AUTO 1 % (0-2); EOSINOPHILS ABSOLUTE AUTO 0.16 K/mm3 (0.00-0.68); EOSINOPHILS PERCENT AUTO 2 % (0-6); Hematocrit 43.1 % (37.0-53.0); Hemoglobin 14.5 g/dL (13.5-17.5); IMMATURE GRAN ABSOLUTE AUTO 0.01 K/mm3 (0.00-0.10); IMMATURE GRAN PERCENT AUTO 0 % (0-1); LYMPHOCYTES ABSOLUTE AUTO 1.13 K/mm3 (0.84-5.20); LYMPHOCYTES PERCENT AUTO 17 % (21-46); MONOCYTES ABSOLUTE AUTO 0.84 K/mm3 (0.16-1.47); MONOCYTES PERCENT AUTO 13 % (4-13); Mean Corpuscular HGB 31.5 pg (26.0-34.0); Mean Corpuscular HGB Conc 33.6 g/dL (31.5-36.5); Mean Corpuscular Volume 94 fL (80-100); Mean Platelet Volume 10.3 fL (9.1-12.4); NEUTROPHILS ABSOLUTE AUTO 4.45 K/mm3 (1.96-9.15); NEUTROPHILS PERCENT AUTO 67 % (41-73); Platelet Count 262 K/mm3 (150-400); RDW Coefficient Variation 12.8 % (11.7-14.2); RDW Standard Deviation 43.8 fL (35.1-46.3); Red Blood Cell Count 4.61 M/mm3 (4.30-5.90); White Blood Cell Count 6.64 K/mm3 (4.00-11.30)
[2020-08-26 05:18] LABS: Anion Gap 4 mmol/L (6-16); Blood Urea Nitrogen 28 mg/dL (8-24); Bun/Creatinine Ratio 23.7 (12.0-20.0); CO2, Blood 24 mmol/L (21-32); Calcium, Blood 8.1 mg/dL (8.5-10.1); Chloride, Blood 115 mmol/L (98-108); Creatinine, Blood 1.18 mg/dL (0.60-1.20); Glomerular Filtration Rate >60 (60-); Glucose, Blood 107 mg/dL (70-99); Potassium, Blood 4.7 mmol/L (3.5-5.5); Sodium, Blood 143 mmol/L (136-145)
--- NOTE | 2020-08-26 06:32 | NUR ---
CONTRACT MAIL CARRIER SUMMARY Patient painful and feeling gassy and nauseated most of the night until around 0300 this morning when he finally felt a little better. Medications given for relief were IV Ativan and Zofran for nausea, Dilaudid for pain and chewable simethecone for lower abd gas pains. Woody overall had one more stool with small solid chunks and liquid to total 3 bowel mvmts in 24 hours... No emesis overnight. AM dose of levothyroxine was held as patient had just fallen asleep after his hard night feeling poorly. At time of lab draw, patient stated he was feeling much better and had just fallen asleep. He is still hoping to get home today. [birth year]
--- NOTE | 2020-08-26 12:25 | NUR ---
ASSUMING CARE FOR THIS PATIENT. RECEIVED BEDSIDE REPORT FROM MARY SILVERMAN.
--- NOTE | 2020-08-26 13:29 | NUR ---
08/26/20- PER CHART REVIEW WITH DR. MORROW, PT HAS IMPROVED TO WHERE DOCTOR WOULD LIKE TO D/C HIM TODAY AFTER HE HAD LUNCH AND SEE HOW HE TOLERATES EATING SOLID FOODS. MET WITH PT AND REVIEWED SHA LETTER WITH HIM. PT ACKNOWLEDGED UNDERSTANDING AND CAN'T IDENTIFY ANY NEEDS AT THIS TIME.-MATT
[2020-08-26] MEDS ORDERED: ALBU90OI INH (16:12)
--- NOTE | 2020-08-26 17:24 | NUR ---
DISCHARGE NOTE PT IS A&OX4 AND ABLE TO MAKE NEEDS KNONW. PT ADVANCED TO FULL LIQUID DIET AND TOLEREATED IT WELL. PT DC HOME, HIS WAS IN ROOM WHEN WE REVIEWED DC PACKET. FLUIDS STOPED AND IV DC. TELE DC AND SENT BACK TO MONITOR ROOM. PT DECLINED WHEELCHAIR TO EXIT AND WALKED OFF FLOOR WITH .
== END 2020-08-26 16:46 | disposition home or self-care (01) | DRG 390 ==
LOC: ER 01:26 → MEDS 03:19 → ENPENDDIS 08-26 16:03 → MEDS 08-26 16:46
PROVIDERS: Emergency Medicine; Family Medicine; Pharmacist; ADMIT Internal Medicine
DX: K56.600 Partial intestinal obstruction, unspecified as to cause (principal); N18.30 Chronic kidney disease, stage 3 unspecified; E03.9 Hypothyroidism, unspecified; G47.00 Insomnia, unspecified; J45.909 Unspecified asthma, uncomplicated; Z86.718 Personal history of other venous thrombosis and embolism; Z88.0 Allergy status to penicillin; Z88.2 Allergy status to sulfonamides; Z88.8 Allergy status to other drugs, medicaments and biological substances; Z79.01 Long term (current) use of anticoagulants; Z79.51 Long term (current) use of inhaled steroids
CPT/HCPCS: 36415; 71045; 74176; 80048; 80053; 83690; 85025; 85610; 85730; 94640; 94760; 96374; 96375; 99285-25; A9270; J1170; J1650; J2060; J2405; J2765; J3480; J7030

== ENCOUNTER → 2021-01-17 | Outpatient (CLI) | payer MEDICARE, BC ==
[~2021-01-17] MED LIST changes: +ALBU90OI INH; +ELIQUIS2.5 M1 PO
== END ==
LOC: LAB 14:19 → LAB SHORT 14:19
DX: L81.4 Other melanin hyperpigmentation (principal)
CPT/HCPCS: 88305; 88342

== ENCOUNTER 2021-03-28 06:47 | Day surgery (SDC) | payer MEDICARE, BC ==
[~2021-03-28] VITALS: Ht 180.3 cm; Wt 86.7 kg
== END 2021-03-28 08:39 | disposition home or self-care (01) ==
LOC: ORSCSDS 06:47
PROVIDERS: Orthopaedic Surgery
PROC: 01N50ZZ Release Median Nerve, Open Approach (ICD-10-PCS; principal; 2021-03-28 08:00)
DX: G56.01 Carpal tunnel syndrome, right upper limb (principal); J45.909 Unspecified asthma, uncomplicated; K21.9 Gastro-esophageal reflux disease without esophagitis; Z86.718 Personal history of other venous thrombosis and embolism; Z79.01 Long term (current) use of anticoagulants; Z79.899 Other long term (current) drug therapy
CPT/HCPCS: J2250; J2704; J3010; J7120

== ENCOUNTER 2021-05-31 09:16 | Day surgery (SDC) | payer MEDICARE, BC ==
[~2021-05-31] VITALS: Ht 182.9 cm; Wt 87.6 kg
== END 2021-05-31 11:47 | disposition home or self-care (01) ==
LOC: ORSCSDS 09:16
PROVIDERS: Orthopaedic Surgery
PROC: 01N50ZZ Release Median Nerve, Open Approach (ICD-10-PCS; principal; 2021-05-31 10:30)
DX: G56.02 Carpal tunnel syndrome, left upper limb (principal); J45.909 Unspecified asthma, uncomplicated; N18.9 Chronic kidney disease, unspecified; F41.9 Anxiety disorder, unspecified; Z86.718 Personal history of other venous thrombosis and embolism; Z79.01 Long term (current) use of anticoagulants; Z79.899 Other long term (current) drug therapy
CPT/HCPCS: J2250; J2704; J3010

== ENCOUNTER 2021-07-15 02:57 | Inpatient (IN) | payer MEDICARE, BC ==
[~2021-07-15] VITALS: Ht 182.9 cm; Wt 86.2 kg
[2021-07-15 03:21] LABS: BASOPHILS ABSOLUTE AUTO 0.07 K/mm3 (0.00-0.23); BASOPHILS PERCENT AUTO 0 % (0-2); EOSINOPHILS ABSOLUTE AUTO 0.11 K/mm3 (0.00-0.68); EOSINOPHILS PERCENT AUTO 1 % (0-6); Hematocrit 50.6 % (37.0-53.0); Hemoglobin 17.5 g/dL (13.5-17.5); IMMATURE GRAN ABSOLUTE AUTO 0.08 K/mm3 (0.00-0.10); IMMATURE GRAN PERCENT AUTO 1 % (0-1); LYMPHOCYTES ABSOLUTE AUTO 0.86 K/mm3 (0.84-5.20); LYMPHOCYTES PERCENT AUTO 5 % (21-46); MONOCYTES ABSOLUTE AUTO 0.77 K/mm3 (0.16-1.47); MONOCYTES PERCENT AUTO 5 % (4-13); Mean Corpuscular HGB 31.8 pg (26.0-34.0); Mean Corpuscular HGB Conc 34.6 g/dL (31.5-36.5); Mean Corpuscular Volume 92 fL (80-100); Mean Platelet Volume 9.9 fL (9.1-12.4); NEUTROPHILS ABSOLUTE AUTO 14.49 K/mm3 (1.96-9.15); NEUTROPHILS PERCENT AUTO 88 % (41-73); Platelet Count 352 K/mm3 (150-400); RDW Coefficient Variation 12.3 % (11.7-14.2); Red Blood Cell Count 5.51 M/mm3 (4.30-5.90); White Blood Cell Count 16.38 K/mm3 (4.00-11.30)
[2021-07-15 03:38] LABS: Albumin, Blood 4.1 g/dL (3.4-5.0); Albumin/Globulin Ratio 1.1 (0.8-1.8); Bilirubin, Total 0.7 mg/dL (0.1-1.0); Bun/Creatinine Ratio 19.5 (12.0-20.0); Creatinine, Blood 1.28 mg/dL (0.60-1.20); Globulin, Blood 3.8 g/dL (2.2-4.0); Potassium, Blood 3.9 mmol/L (3.5-5.5); Total Protein, Blood 7.9 g/dL (6.4-8.2)
[2021-07-15 04:49] LABS: International Normalized Ratio 0.98; Prothrombin Time Results 10.3 Sec (9.7-11.5)
--- NOTE | 2021-07-15 16:57 | NUR ---
SHIFT SUMMARY PT ADMITTED FOR SBO. HE IS A/O AND SBA IN THE ROOM. NO EMESIS THIS SHIFT AND NAUSEA HAS BEEN MINIMAL. PT HAS A HISTORY OF SMALL BOWEL OBSTRUCTIONS AND IN THE PAST THEY HAVE RESOLVED WITHOUT SURGICAL INTERVENTION. PT IS CURRENTLY RECEIVING IV HYDRATION AND OF RIGHT NOW SURGERY IS NOT BEING CONSIDERED FOR HIS BOWEL OBSTRUCTION. JO-ANN. WILL REPORT TO RINKU SILVERMAN.
[2021-07-16 05:04] LABS: Albumin, Blood 2.8 g/dL (3.4-5.0); Anion Gap 5 mmol/L (6-16); Blood Urea Nitrogen 20 mg/dL (8-24); Bun/Creatinine Ratio 16.4 (12.0-20.0); CO2, Blood 24 mmol/L (21-32); Chloride, Blood 113 mmol/L (98-108); Creatinine, Blood 1.22 mg/dL (0.60-1.20); Glomerular Filtration Rate 59 (60-); Glucose, Blood 100 mg/dL (70-99); Phosphorus, Blood 2.4 mg/dL (2.5-4.9); Potassium, Blood 4.1 mmol/L (3.5-5.5); Sodium, Blood 142 mmol/L (136-145)
--- NOTE | 2021-07-16 05:44 | NUR ---
SHIFT SUMMARY: PT. AOX4, AMBULATES TO BATHROOM INDEPEDENTLY. ABLE TO MAKE NEEDS KNOWN & USES CALL LIGHT. URINATES IN THE URINAL AT TIMES WITH CLEAR MANUEL URINE. CLWR. NO NEW UNUSUALITIES NOTED. DENIED N/V. WILL CONTINUE TO MONITOR
--- NOTE | 2021-07-16 18:24 | NUR ---
SHIFT SUMMARY PT A/O X4 AND IND IN THE ROOM. STARTED ON CLEAR LIQUIDS AND BEGAN TO HAVE ABD PAIN. PT HAD ONE EPISODE AND EMESIS AND MULTIPLE BM'S THIS SHIFT. PT IS NOW ABLE TO TOLERATE CLEAR LIQUIDS AND HIS ABD PAIN HAS GONE AWAY. VSS. WILL REPORT TO RINKU SILVERMAN.
--- NOTE | 2021-07-17 04:38 | NUR ---
SHIFT SUMMARY: PT. ANGX4, INDEPENDENT IN ROOM, ADVISED TO CALL FOR ANY HELP NEEDED USING A CALL LIGHT, PT. VERBALIZED UNDERSTANDING. HAD 2 SOFT BM's WITHIN THE SHIFT, REFUSED TO TAKE HIS STOOL SOFTENERS. SLEPT WELL. NO S/S OF RESP./CV DISTRESS NOTED. WILL CONTINUE TO MONITOR.
[2021-07-17 05:13] LABS: Albumin, Blood 2.7 g/dL (3.4-5.0); Anion Gap 3 mmol/L (6-16); Blood Urea Nitrogen 12 mg/dL (8-24); Bun/Creatinine Ratio 9.8 (12.0-20.0); CO2, Blood 26 mmol/L (21-32); Calcium, Blood 8.1 mg/dL (8.5-10.1); Chloride, Blood 114 mmol/L (98-108); Creatinine, Blood 1.22 mg/dL (0.60-1.20); Glomerular Filtration Rate 59 (60-); Glucose, Blood 126 mg/dL (70-99); Phosphorus, Blood 1.9 mg/dL (2.5-4.9); Potassium, Blood 4.1 mmol/L (3.5-5.5); Sodium, Blood 143 mmol/L (136-145)
[2021-07-17 08:03] LABS: BASOPHILS ABSOLUTE AUTO 0.05 K/mm3 (0.00-0.23); BASOPHILS PERCENT AUTO 1 % (0-2); EOSINOPHILS ABSOLUTE AUTO 0.31 K/mm3 (0.00-0.68); EOSINOPHILS PERCENT AUTO 5 % (0-6); Hematocrit 41.3 % (37.0-53.0); Hemoglobin 13.5 g/dL (13.5-17.5); IMMATURE GRAN ABSOLUTE AUTO 0.02 K/mm3 (0.00-0.10); IMMATURE GRAN PERCENT AUTO 0 % (0-1); LYMPHOCYTES ABSOLUTE AUTO 1.37 K/mm3 (0.84-5.20); LYMPHOCYTES PERCENT AUTO 22 % (21-46); MONOCYTES ABSOLUTE AUTO 0.65 K/mm3 (0.16-1.47); MONOCYTES PERCENT AUTO 11 % (4-13); Mean Corpuscular HGB 31.5 pg (26.0-34.0); Mean Corpuscular HGB Conc 32.7 g/dL (31.5-36.5); Mean Corpuscular Volume 96 fL (80-100); Mean Platelet Volume 10.4 fL (9.1-12.4); NEUTROPHILS ABSOLUTE AUTO 3.71 K/mm3 (1.96-9.15); NEUTROPHILS PERCENT AUTO 61 % (41-73); Platelet Count 261 K/mm3 (150-400); RDW Coefficient Variation 12.6 % (11.7-14.2); RDW Standard Deviation 44.3 fL (35.1-46.3); Red Blood Cell Count 4.29 M/mm3 (4.30-5.90); White Blood Cell Count 6.11 K/mm3 (4.00-11.30)
--- NOTE | 2021-07-17 16:16 | NUR ---
I went to visit the patient in his [facility] room 211. Patient was standing, alert, and pleasant. He states that he lives at home with his spouse - Queta Devries - [phone]. He is ambulatory and independent in his home. He has never received services and would not have a preference. He does not use any DME. Him and his spouse both drive. He states that Queta would be able to provide discharge transportation. I explained that Shivani would like to see him in office within 2-5 days of his discharge date for a close follow-up. Patient agreeable to this.
--- NOTE | 2021-07-17 18:13 | NUR ---
SHIFT SUMMARY PT HAS TOLERATED FULL LQ's GREAT TODAY. NO N/V; NO ABD PAIN OTHER THAN A DULL SORE-NESS REPORTED. BM's ARE FIRMING UP & STILL PASSING GAS. PLAN FOR REGULAR DIET TOMORROW AM & POSS DC.
[2021-07-18 04:24] LABS: BASOPHILS ABSOLUTE AUTO 0.07 K/mm3 (0.00-0.23); BASOPHILS PERCENT AUTO 1 % (0-2); EOSINOPHILS ABSOLUTE AUTO 0.33 K/mm3 (0.00-0.68); EOSINOPHILS PERCENT AUTO 5 % (0-6); Hematocrit 40.2 % (37.0-53.0); Hemoglobin 13.6 g/dL (13.5-17.5); IMMATURE GRAN ABSOLUTE AUTO 0.03 K/mm3 (0.00-0.10); IMMATURE GRAN PERCENT AUTO 1 % (0-1); LYMPHOCYTES PERCENT AUTO 27 % (21-46); MONOCYTES ABSOLUTE AUTO 0.65 K/mm3 (0.16-1.47); MONOCYTES PERCENT AUTO 10 % (4-13); Mean Corpuscular HGB 31.3 pg (26.0-34.0); Mean Corpuscular HGB Conc 33.8 g/dL (31.5-36.5); Mean Corpuscular Volume 93 fL (80-100); Mean Platelet Volume 10.1 fL (9.1-12.4); NEUTROPHILS ABSOLUTE AUTO 3.61 K/mm3 (1.96-9.15); NEUTROPHILS PERCENT AUTO 56 % (41-73); Platelet Count 273 K/mm3 (150-400); RDW Coefficient Variation 12.1 % (11.7-14.2); Red Blood Cell Count 4.34 M/mm3 (4.30-5.90); White Blood Cell Count 6.39 K/mm3 (4.00-11.30)
[2021-07-18 04:52] LABS: Anion Gap 3 mmol/L (6-16); Blood Urea Nitrogen 12 mg/dL (8-24); Bun/Creatinine Ratio 9.2 (12.0-20.0); CO2, Blood 28 mmol/L (21-32); Calcium, Blood 8.9 mg/dL (8.5-10.1); Chloride, Blood 111 mmol/L (98-108); Glomerular Filtration Rate 55 (60-); Glucose, Blood 91 mg/dL (70-99); Phosphorus, Blood 2.5 mg/dL (2.5-4.9); Potassium, Blood 3.8 mmol/L (3.5-5.5); Sodium, Blood 142 mmol/L (136-145)
--- NOTE | 2021-07-18 05:41 | NUR ---
SHIFT SUMMARY A/OX4, IND IN ROOM. UP TO SHOWER AT BEGINNING OF SHIFT. PT REPORTS SOFT MEDIUM BM. ABD TENDER, DENIES PAIN. TOLERATING FULL LIQUID DIET. C/O DIFFICULTY SLEEPING T/O NIGHT, MEDICATED PER EMAR. VSS, NO ACUTE CHANGES AT THIS TIME. BED IN LOWEST POSITION WITH CALL LIGHT IN REACH. WILL CONTINUE TO MONITOR AND REPORT TO ONCOMING RN.
--- NOTE | 2021-07-18 05:43 | NUR ---
SHIFT SUMMARY A/OX3, FORGETFUL AT TIMES. C/O HEAVY VAGINAL BLEEDING WITH CLOTS PRESENT. UP TO BSC 1 ASSIST. TELE SINUS TACH VARYING FROM 105-125. NO ACUTE CHANGES AT THIS TIME. BED IN LOWEST POSITION WITH CALL LIGHT IN REACH. WILL CONTINUE TO MONITOR AND REPORT TO ONCOMING RN.
--- NOTE | 2021-07-18 11:06 | NUR ---
DISCHARGE TOLERATED REG DIET WELL & DENIES N/V OR ABD PAIN. NO NEW MEDS. F/U MADE FOR SATURDAY. AMBULATED OUT TO WAITING IN CAR.
--- NOTE | 2021-07-18 14:31 | NUR ---
Per chart review with Dr. Villanueva, patient is appropriate for discharge. I went to visit the patient in his room to confirm discharge plan. Patient was on the phone with his spouse - who confirmed she would be providing transportation home upon discharge. I scheduled a hospital follow up appointment with Dr. Abdias Mitchell on Wednesday, July 21, 2021 at 12:00PM. Patient in agreement to this and to the discharge plan. Patient denies barriers to discharging and feels safe to return home.
== END 2021-07-18 11:08 | disposition home or self-care (01) | DRG 392 ==
LOC: ER 02:57 → SURS 02:59 → ER 04:52 → SURS 05:40
PROVIDERS: Family Medicine; Internal Medicine Endocrinology, Diabetes & Metabolism; Student in an Organized Health Care Education/Training Program; ADMIT Internal Medicine
DX: K52.9 Noninfective gastroenteritis and colitis, unspecified (principal); D72.829 Elevated white blood cell count, unspecified; E03.9 Hypothyroidism, unspecified; N18.30 Chronic kidney disease, stage 3 unspecified; Z28.21 Immunization not carried out because of patient refusal; J45.909 Unspecified asthma, uncomplicated; Z88.0 Allergy status to penicillin; Z88.1 Allergy status to other antibiotic agents; Z79.01 Long term (current) use of anticoagulants; Z88.2 Allergy status to sulfonamides; Z88.8 Allergy status to other drugs, medicaments and biological substances; Z79.899 Other long term (current) drug therapy; Z86.718 Personal history of other venous thrombosis and embolism; Z90.49 Acquired absence of other specified parts of digestive tract; Z98.890 Other specified postprocedural states
CPT/HCPCS: 36415; 74177; 80053; 80069; 83605; 83690; 83735; 85025; 85610; 85730; 86850; 86900; 86901; 94640; 94664; 94760; 96365-59; 96375; 96376; 99285-25; A9270; C9113; G0378; J0696; J1885; J2270; J2405; J3480; J7030; J7120; Q9967

== ENCOUNTER → 2022-02-01 | Outpatient (CLI) | payer MEDICARE, BC ==
[2022-02-01 15:07] LABS: BASOPHILS ABSOLUTE AUTO 0.01 K/mm3 (0.00-0.23); BASOPHILS PERCENT AUTO 0 % (0-2); EOSINOPHILS ABSOLUTE AUTO 0.09 K/mm3 (0.00-0.68); EOSINOPHILS PERCENT AUTO 2 % (0-6); Hemoglobin 14.9 g/dL (13.5-17.5); IMMATURE GRAN ABSOLUTE AUTO 0.05 K/mm3 (0.00-0.10); IMMATURE GRAN PERCENT AUTO 1 % (0-1); LYMPHOCYTES PERCENT AUTO 14 % (21-46); MONOCYTES PERCENT AUTO 14 % (4-13); Mean Corpuscular HGB 31.1 pg (26.0-34.0); Mean Corpuscular HGB Conc 34.7 g/dL (31.5-36.5); Mean Corpuscular Volume 90 fL (80-100); Mean Platelet Volume 9.5 fL (9.1-12.4); NEUTROPHILS ABSOLUTE AUTO 3.41 K/mm3 (1.96-9.15); NEUTROPHILS PERCENT AUTO 69 % (41-73); Platelet Count 250 K/mm3 (150-400); RDW Coefficient Variation 12.9 % (11.7-14.2); RDW Standard Deviation 42.5 fL (35.1-46.3); Red Blood Cell Count 4.79 M/mm3 (4.30-5.90); White Blood Cell Count 4.96 K/mm3 (4.00-11.30)
[2022-02-01 15:11] LABS: Bun/Creatinine Ratio 16.8 (12.0-20.0); Calcium, Blood 9.2 mg/dL (8.5-10.1); Creatinine, Blood 1.43 mg/dL (0.60-1.20); Potassium, Blood 4.4 mmol/L (3.5-5.5)
== END | disposition home or self-care (01) ==
LOC: LAB SHORT 15:03
PROVIDERS: Physician Assistant Surgical
DX: U07.1 COVID-19 (principal)
CPT/HCPCS: 80048; 85025

== ENCOUNTER → 2022-08-20 | Outpatient (CLI) | payer MEDICARE, BC ==
[~2022-08-20] MED LIST changes: +B-1100 M1 PO; +CEFP200 PO; +PANT40 PO; +PHOS-NAK PO; +Phenergan25 M1 PO; +TAMSULOSIN HCL0.4 M1 PO; +VISBIOME 112.51 EACH PO; +WIXELA 100-501 EAC1 INH
[2022-08-20 12:42] LABS: BASOPHILS ABSOLUTE AUTO 0.08 K/mm3 (0.00-0.23); BASOPHILS PERCENT AUTO 1 % (0-2); EOSINOPHILS ABSOLUTE AUTO 0.29 K/mm3 (0.00-0.68); EOSINOPHILS PERCENT AUTO 5 % (0-6); Hematocrit 41.7 % (37.0-53.0); Hemoglobin 14.2 g/dL (13.5-17.5); IMMATURE GRAN ABSOLUTE AUTO 0.01 K/mm3 (0.00-0.10); IMMATURE GRAN PERCENT AUTO 0 % (0-1); LYMPHOCYTES ABSOLUTE AUTO 1.16 K/mm3 (0.84-5.20); LYMPHOCYTES PERCENT AUTO 18 % (21-46); MONOCYTES ABSOLUTE AUTO 0.57 K/mm3 (0.16-1.47); MONOCYTES PERCENT AUTO 9 % (4-13); Mean Corpuscular HGB 31.7 pg (26.0-34.0); Mean Corpuscular HGB Conc 34.1 g/dL (31.5-36.5); Mean Corpuscular Volume 93 fL (80-100); Mean Platelet Volume 9.8 fL (9.1-12.4); NEUTROPHILS ABSOLUTE AUTO 4.28 K/mm3 (1.96-9.15); NEUTROPHILS PERCENT AUTO 67 % (41-73); Platelet Count 302 K/mm3 (150-400); RDW Coefficient Variation 12.4 % (11.7-14.2); RDW Standard Deviation 42.8 fL (35.1-46.3); Red Blood Cell Count 4.48 M/mm3 (4.30-5.90); White Blood Cell Count 6.39 K/mm3 (4.00-11.30)
[2022-08-20 13:03] LABS: Albumin, Blood 3.9 g/dL (3.4-5.0); Albumin/Globulin Ratio 1.1 (0.8-1.8); Bilirubin, Total 0.5 mg/dL (0.1-1.0); Bun/Creatinine Ratio 15.2 (12.0-20.0); Calcium, Blood 9.8 mg/dL (8.5-10.1); Creatinine, Blood 1.97 mg/dL (0.60-1.20); Globulin, Blood 3.7 g/dL (2.2-4.0); Potassium, Blood 4.3 mmol/L (3.5-5.5); Total Protein, Blood 7.6 g/dL (6.4-8.2)
== END | disposition home or self-care (01) ==
LOC: LAB 12:33 → LAB SHORT 12:33
PROVIDERS: Physician Assistant
DX: R07.9 Chest pain, unspecified (principal)
CPT/HCPCS: 80053; 83690; 84484; 85025

== ENCOUNTER 2023-02-11 12:20 | Emergency (ER) | payer MEDICARE, BC ==
[~2023-02-11] VITALS: Ht 182.9 cm; Wt 86.2 kg
[2023-02-11 13:10] LABS: BASOPHILS ABSOLUTE AUTO 0.07 K/mm3 (0.00-0.23); BASOPHILS PERCENT AUTO 1 % (0-2); EOSINOPHILS ABSOLUTE AUTO 0.22 K/mm3 (0.00-0.68); EOSINOPHILS PERCENT AUTO 3 % (0-6); Hematocrit 42.8 % (37.0-53.0); Hemoglobin 14.6 g/dL (13.5-17.5); IMMATURE GRAN ABSOLUTE AUTO 0.02 K/mm3 (0.00-0.10); IMMATURE GRAN PERCENT AUTO 0 % (0-1); LYMPHOCYTES ABSOLUTE AUTO 0.74 K/mm3 (0.84-5.20); LYMPHOCYTES PERCENT AUTO 10 % (21-46); MONOCYTES ABSOLUTE AUTO 0.62 K/mm3 (0.16-1.47); MONOCYTES PERCENT AUTO 8 % (4-13); Mean Corpuscular HGB 31.1 pg (26.0-34.0); Mean Corpuscular HGB Conc 34.1 g/dL (31.5-36.5); Mean Corpuscular Volume 91 fL (80-100); Mean Platelet Volume 9.5 fL (9.1-12.4); NEUTROPHILS ABSOLUTE AUTO 6.16 K/mm3 (1.96-9.15); NEUTROPHILS PERCENT AUTO 79 % (41-73); Platelet Count 278 K/mm3 (150-400); RDW Coefficient Variation 12.9 % (11.7-14.2); RDW Standard Deviation 42.5 fL (35.1-46.3); Red Blood Cell Count 4.69 M/mm3 (4.30-5.90); White Blood Cell Count 7.83 K/mm3 (4.00-11.30)
[2023-02-11 13:28] LABS: Albumin, Blood 3.6 g/dL (3.4-5.0); Albumin/Globulin Ratio 1.1 (0.8-1.8); Bilirubin, Total 0.7 mg/dL (0.1-1.0); Bun/Creatinine Ratio 14.7 (12.0-20.0); Calcium, Blood 9.1 mg/dL (8.5-10.1); Creatinine, Blood 1.77 mg/dL (0.60-1.20); Globulin, Blood 3.3 g/dL (2.2-4.0); Potassium, Blood 4.3 mmol/L (3.5-5.5); Total Protein, Blood 6.9 g/dL (6.4-8.2)
[2023-02-11 15:00] VITALS: BP 131/70
[2023-02-11] MEDS ORDERED: Prednisone20 MG PO (15:15)
== END 2023-02-11 15:19 | disposition home or self-care (01) ==
LOC: ER 12:20
PROVIDERS: Physician Assistant
DX: J45.901 Unspecified asthma with (acute) exacerbation (principal); R07.9 Chest pain, unspecified; Z88.0 Allergy status to penicillin; Z88.8 Allergy status to other drugs, medicaments and biological substances; Z88.1 Allergy status to other antibiotic agents; Z88.2 Allergy status to sulfonamides; Z79.899 Other long term (current) drug therapy; N18.30 Chronic kidney disease, stage 3 unspecified
CPT/HCPCS: 71045; 80053; 84484; 85025; 93005; 93010; 94640; 94664; 96374; 99284-25; J2930

== ENCOUNTER → 2023-05-04 | Outpatient (CLI) | payer MEDICARE, BC ==
[2023-05-04 16:25] LABS: BASOPHILS ABSOLUTE AUTO 0.08 K/mm3 (0.00-0.23); BASOPHILS PERCENT AUTO 1 % (0-2); EOSINOPHILS ABSOLUTE AUTO 0.24 K/mm3 (0.00-0.68); EOSINOPHILS PERCENT AUTO 2 % (0-6); Hematocrit 44.4 % (37.0-53.0); Hemoglobin 15.3 g/dL (13.5-17.5); IMMATURE GRAN ABSOLUTE AUTO 0.02 K/mm3 (0.00-0.10); IMMATURE GRAN PERCENT AUTO 0 % (0-1); LYMPHOCYTES ABSOLUTE AUTO 1.07 K/mm3 (0.84-5.20); LYMPHOCYTES PERCENT AUTO 11 % (21-46); MONOCYTES ABSOLUTE AUTO 0.77 K/mm3 (0.16-1.47); MONOCYTES PERCENT AUTO 8 % (4-13); Mean Corpuscular HGB 31.7 pg (26.0-34.0); Mean Corpuscular HGB Conc 34.5 g/dL (31.5-36.5); Mean Corpuscular Volume 92 fL (80-100); Mean Platelet Volume 9.7 fL (9.1-12.4); NEUTROPHILS ABSOLUTE AUTO 7.95 K/mm3 (1.96-9.15); NEUTROPHILS PERCENT AUTO 78 % (41-73); Platelet Count 299 K/mm3 (150-400); RDW Coefficient Variation 13.2 % (11.7-14.2); RDW Standard Deviation 44.1 fL (35.1-46.3); Red Blood Cell Count 4.83 M/mm3 (4.30-5.90); White Blood Cell Count 10.13 K/mm3 (4.00-11.30)
[2023-05-04 16:38] LABS: Albumin, Blood 3.7 g/dL (3.4-5.0); Albumin/Globulin Ratio 1.1 (0.8-1.8); Bilirubin, Total 0.5 mg/dL (0.1-1.0); Bun/Creatinine Ratio 16.1 (12.0-20.0); Calcium, Blood 9.5 mg/dL (8.5-10.1); Creatinine, Blood 1.74 mg/dL (0.60-1.20); Globulin, Blood 3.3 g/dL (2.2-4.0); Potassium, Blood 4.1 mmol/L (3.5-5.5)
== END ==
LOC: LAB 16:21 → LAB SHORT 16:21
PROVIDERS: Physician Assistant
DX: R07.9 Chest pain, unspecified (principal)
CPT/HCPCS: 80053; 84484; 85025

== ENCOUNTER 2024-02-12 08:51 | Inpatient (IN) | payer MEDICARE, BC ==
[~2024-02-12] VITALS: Ht 182.9 cm; Wt 85.3 kg
[~2024-02-12 08:51] MED LIST changes: +ONDA4ODT MM
[2024-02-12] MEDS ORDERED: Ondansetron HCl 2 MG / ML 2ML Vial IV ONE ×2 (09:30→10:35)
[2024-02-12 09:45] LABS: BASOPHILS ABSOLUTE AUTO 0.05 K/mm3 (0.00-0.23); BASOPHILS PERCENT AUTO 0 % (0-2); EOSINOPHILS ABSOLUTE AUTO 0.06 K/mm3 (0.00-0.68); EOSINOPHILS PERCENT AUTO 1 % (0-6); Hematocrit 48.1 % (37.0-53.0); Hemoglobin 16.7 g/dL (13.5-17.5); IMMATURE GRAN ABSOLUTE AUTO 0.04 K/mm3 (0.00-0.10); IMMATURE GRAN PERCENT AUTO 0 % (0-1); LYMPHOCYTES ABSOLUTE AUTO 0.76 K/mm3 (0.84-5.20); LYMPHOCYTES PERCENT AUTO 6 % (21-46); MONOCYTES ABSOLUTE AUTO 0.61 K/mm3 (0.16-1.47); MONOCYTES PERCENT AUTO 5 % (4-13); Mean Corpuscular HGB 31.8 pg (26.0-34.0); Mean Corpuscular HGB Conc 34.7 g/dL (31.5-36.5); Mean Corpuscular Volume 92 fL (80-100); Mean Platelet Volume 9.9 fL (9.1-12.4); NEUTROPHILS ABSOLUTE AUTO 11.08 K/mm3 (1.96-9.15); NEUTROPHILS PERCENT AUTO 88 % (41-73); Platelet Count 347 K/mm3 (150-400); RDW Coefficient Variation 13.1 % (11.7-14.2); RDW Standard Deviation 43.6 fL (35.1-46.3); Red Blood Cell Count 5.25 M/mm3 (4.30-5.90)
[2024-02-12 10:02] LABS: Albumin, Blood 3.7 g/dL (3.4-5.0); Bilirubin, Total 1.2 mg/dL (0.1-1.0); Bun/Creatinine Ratio 19.7 (12.0-20.0); Calcium, Blood 9.3 mg/dL (8.5-10.1); Creatinine, Blood 1.47 mg/dL (0.60-1.20); Globulin, Blood 3.6 g/dL (2.2-4.0); Potassium, Blood 4.4 mmol/L (3.5-5.5); Total Protein, Blood 7.3 g/dL (6.4-8.2)
[2024-02-12] MEDS ORDERED: Morphine Sulfate 4 MG/1 ML Injection IV ONE (10:35)
[2024-02-12] MEDS ORDERED: NS 1,000 ML IV SCH ×2 (10:35→13:00)
[2024-02-12 11:19] LABS: Source, Urine Clean Catch
[2024-02-12 11:22] LABS: Appearance, Urine Clear (Clear); Bilirubin, Urine Neg (Neg); Blood, Urine Neg (Neg); Color, Urine Yellow (P-Yellow); Glucose Qualitative, Urine Neg (Neg); Ketones, Urine Neg (Neg); Leukocyte Esterase, Urine Neg (Neg); Nitrite, Urine Neg (Neg); Protein, Urine 1+ (Neg); Urobilinogen, Urine NORM (Normal)
[2024-02-12] MEDS ORDERED: Bisacodyl 10 MG Supp PR PRN (12:20)
[2024-02-12] MEDS ORDERED: Magnesium Hydroxide Conc 10 ML UDC PO PRN (12:20)
[2024-02-12] MEDS ORDERED: Ondansetron 4 MG TAB PO PRN (12:20)
[2024-02-12] MEDS ORDERED: Acetaminophen 325 MG TABLET PO PRN (12:20)
[2024-02-12] MEDS ORDERED: Morphine Sulfate 10 MG/ML 1MLSYR IV PRN (12:25)
[2024-02-12] MEDS ORDERED: TraZODone HCl 50 MG Tab PO PRN (12:25)
[2024-02-12] MEDS ORDERED: Fluticasone 0.05% Nasal Spray PRN (12:25)
[2024-02-12] MEDS ORDERED: Mometasone/Formoterol MDI 100/5 mcg 13 GM INH SCH (12:30)
[2024-02-12] MEDS ORDERED: Ondansetron HCl 2 MG / ML 2ML Vial IV PRN (12:55)
[2024-02-12 14:41] VITALS: BP 142/65
--- NOTE | 2024-02-12 15:00 | NUR ---
ADMISSION: REPORT RECEIVED FROM ED RN. PT TO UNIT AT ABOUT 1450. PT IS A/O, VSS. PT DENIES N/V, OR ABD PAIN AT THIS TIME. FLUIDS INFUSING. CALL LIGHT IN REACH.
--- NOTE | 2024-02-12 17:58 | NUR ---
SHIFT SUMMARY PT TRANSFERED FROM ED TO SURG FLOOR. A&OX4, VSS, IN A PLEASENT MOOD. AT BEDSIDE UPON ARRIVAL. C/O ABD PAIN. DENIES N/V DURING THIS SHIFT. NPO, BOWEL REST AT THIS TIME. AMBULATES INDEPENDENTLY TO BATHROOM AND BACK TO BED. PAIN MANAGED PER EMAR. EDUCATED PT ABOUT IMPORTANCE OF NOTIFYING NURSE IF PAIN INCREASES AGAIN. CALL LIGHT WITHIN REACH.
[2024-02-12 19:27] VITALS: BP 141/74
[2024-02-13 04:05] VITALS: BP 124/60
[2024-02-13 05:24] LABS: BASOPHILS ABSOLUTE AUTO 0.06 K/mm3 (0.00-0.23); BASOPHILS PERCENT AUTO 1 % (0-2); EOSINOPHILS PERCENT AUTO 4 % (0-6); Hematocrit 40.2 % (37.0-53.0); Hemoglobin 13.4 g/dL (13.5-17.5); IMMATURE GRAN ABSOLUTE AUTO 0.02 K/mm3 (0.00-0.10); IMMATURE GRAN PERCENT AUTO 0 % (0-1); LYMPHOCYTES ABSOLUTE AUTO 1.09 K/mm3 (0.84-5.20); LYMPHOCYTES PERCENT AUTO 20 % (21-46); MONOCYTES ABSOLUTE AUTO 0.69 K/mm3 (0.16-1.47); MONOCYTES PERCENT AUTO 13 % (4-13); Mean Corpuscular HGB 31.2 pg (26.0-34.0); Mean Corpuscular HGB Conc 33.3 g/dL (31.5-36.5); Mean Corpuscular Volume 94 fL (80-100); Mean Platelet Volume 10.3 fL (9.1-12.4); NEUTROPHILS ABSOLUTE AUTO 3.47 K/mm3 (1.96-9.15); NEUTROPHILS PERCENT AUTO 63 % (41-73); Platelet Count 257 K/mm3 (150-400); RDW Coefficient Variation 13.2 % (11.7-14.2); RDW Standard Deviation 45.2 fL (35.1-46.3); Red Blood Cell Count 4.29 M/mm3 (4.30-5.90); White Blood Cell Count 5.53 K/mm3 (4.00-11.30)
--- NOTE | 2024-02-13 05:33 | NUR ---
SHIFT SUMMARY PT ABLE TO REST DURING THE SHIFT. PAIN MANAGED PER EMAR. NPO FOR BOWEL REST. PT VOIDING DARK MANUEL URINE. PT STATES FEELS LIKE HE HAS TO PAS GAS BUT HASNT YET. VSS. NO OTHER CONCERNS AT THIS TIME, CALL LIGHT WITHIN REACH
[2024-02-13 05:58] LABS: Albumin, Blood 2.7 g/dL (3.4-5.0); Bilirubin, Total 1.9 mg/dL (0.1-1.0); Calcium, Blood 8.2 mg/dL (8.5-10.1); Creatinine, Blood 1.4 mg/dL (0.60-1.20); Globulin, Blood 2.7 g/dL (2.2-4.0); Potassium, Blood 4.1 mmol/L (3.5-5.5); Total Protein, Blood 5.4 g/dL (6.4-8.2)
[2024-02-13] MEDS ORDERED: Levothyroxine Sodium 0.088 MG Tab PO SCH (06:00)
[2024-02-13 07:34] VITALS: BP 128/64
[2024-02-13] MEDS ORDERED: Enoxaparin 40 MG/0.4 ML SYR SC SCH (09:00)
[2024-02-13] MEDS ORDERED: Tamsulosin HCl 0.4 MG Cap PO SCH (09:00)
[2024-02-13] MEDS ORDERED: PROAIR RESPICL90 MCG INH (10:59)
[2024-02-13] MEDS ORDERED: NS 1,000 ML IV SCH (11:25)
[2024-02-13 13:39] LABS: Source, Urine Clean Catch
[2024-02-13 13:42] LABS: Appearance, Urine Clear (Clear); Bilirubin, Urine Neg (Neg); Blood, Urine Neg (Neg); Color, Urine Yellow (P-Yellow); Glucose Qualitative, Urine Neg (Neg); Ketones, Urine 2+ (Neg); Leukocyte Esterase, Urine Neg (Neg); Nitrite, Urine Neg (Neg); Protein, Urine 1+ (Neg); Urobilinogen, Urine 2+ (Normal)
[2024-02-13 14:43] VITALS: BP 124/63
--- NOTE | 2024-02-13 18:45 | NUR ---
SHIFT SUMMARY PT HAS DONE WELL T/O SHIFT. HAD 1 SM BM, DIET ADVANCED TO CLEAR LIQUIDS TOLERATED, NO N/V. VOIDING W/O DIFFICULTY. FLUIDS DECREASED BACK DOWN TO 150ML/HR PER DR ISSA. PLAN TO CONTINUE MONITORING THROUGH THE NIGHT W/POSSIBLE DC TOMORROW.
[2024-02-13 19:19] VITALS: BP 139/72
[2024-02-13] MEDS ORDERED: Apixaban 5 MG Tab PO SCH (21:00)
[2024-02-14 04:26] VITALS: BP 146/71
--- NOTE | 2024-02-14 04:26 | NUR ---
SHIFT SUMMARY PT RESTLESS DURING THE NIGHT. PT DENIES ANY NEEDS FOR PAIN MEDS. TOLERATING CLEAR LIQUID DIET. PT VOIDING WELL. PT IND IN THE ROOM. PT HAVING BM'S AND PASSING GAS. VSS. NO OTHER CONCERNS AT THIS TIME, CALL LIGHT WITHIN REACH
[2024-02-14 07:35] VITALS: BP 140/70
[2024-02-14 14:46] VITALS: BP 131/69
--- NOTE | 2024-02-14 16:13 | NUR ---
SUMMARY PT TOLERATED LUNCH WELL, STATING FELT "BETTER" AFTER EATING REGULAR LUNCH. WISHED TO BE DISCHARGED. VSS. IV DC'D. REVIEWED DC INSTRUCTIONS W/PT; VERBALIZED UNDERSTANDING. PT LEFT UNIT BY AMBULATION WITH POSSESSIONS AND DC PAPERWORK IN HAND, ACCOMPANIED BY SPOUSE; DECLINED WC.
== END 2024-02-14 16:10 | disposition home or self-care (01) | DRG 390 ==
LOC: ER 08:51 → SURS 12:16
PROVIDERS: Physician Assistant; ADMIT Family Medicine
DX: K56.0 Paralytic ileus (principal); K52.9 Noninfective gastroenteritis and colitis, unspecified; K57.90 Diverticulosis of intestine, part unspecified, without perforation or abscess without bleeding; N18.30 Chronic kidney disease, stage 3 unspecified; E03.9 Hypothyroidism, unspecified; J45.909 Unspecified asthma, uncomplicated; Z87.19 Personal history of other diseases of the digestive system; Z90.49 Acquired absence of other specified parts of digestive tract; Z98.890 Other specified postprocedural states; Z79.01 Long term (current) use of anticoagulants; Z86.718 Personal history of other venous thrombosis and embolism; Z88.0 Allergy status to penicillin; Z88.2 Allergy status to sulfonamides; Z88.8 Allergy status to other drugs, medicaments and biological substances; Z79.899 Other long term (current) drug therapy; Z79.890 Hormone replacement therapy
CPT/HCPCS: 36415; 74177; 80053; 83690; 85025; 94640; 94664; 94760; 94762; 96374-59; 96375; 96376; 99285-25; A9270; J1650; J2270; J2405; J7030; Q9967

== ENCOUNTER 2024-06-03 09:28 | Emergency (ER) | payer MEDICARE, BC ==
[~2024-06-03] VITALS: Ht 182.9 cm; Wt 85.3 kg
[~2024-06-03 09:28] MED LIST changes: +PROAIR RESPICL90 MCG INH
[2024-06-03 09:45] VITALS: BP 142/76
[2024-06-03 10:19] LABS: CORONAVIRUS COVID-19 AG Negative (NEGATIVE); INFLUENZA A AG Negative (NEGATIVE); INFLUENZA B AG Negative (NEGATIVE)
[2024-06-03] MEDS ORDERED: Benzonatate 100 MG Cap PO ONE (10:55)
[2024-06-03] MEDS ORDERED: BENZ100A PO (10:55)
== END 2024-06-03 11:00 | disposition home or self-care (01) ==
LOC: ER 09:28
PROVIDERS: Physician Assistant
DX: J06.9 Acute upper respiratory infection, unspecified (principal); E03.9 Hypothyroidism, unspecified; J45.909 Unspecified asthma, uncomplicated; Z79.52 Long term (current) use of systemic steroids; Z79.899 Other long term (current) drug therapy; Z88.0 Allergy status to penicillin; Z88.2 Allergy status to sulfonamides; Z88.8 Allergy status to other drugs, medicaments and biological substances; Z88.1 Allergy status to other antibiotic agents
CPT/HCPCS: 71046; 87428-QW; 99283-25; A9270

== ENCOUNTER → 2024-12-24 | Outpatient (CLI) | payer MEDICARE, BC ==
[~2024-12-24] MED LIST changes: +BENZ100A PO; +sudafed PO
[2024-12-24 15:08] LABS: BASOPHILS ABSOLUTE AUTO 0.08 K/mm3 (0.00-0.23); BASOPHILS PERCENT AUTO 1 % (0-2); EOSINOPHILS ABSOLUTE AUTO 0.17 K/mm3 (0.00-0.68); EOSINOPHILS PERCENT AUTO 2 % (0-6); Hematocrit 44.6 % (37.0-53.0); Hemoglobin 15.3 g/dL (13.5-17.5); IMMATURE GRAN ABSOLUTE AUTO 0.03 K/mm3 (0.00-0.10); IMMATURE GRAN PERCENT AUTO 0 % (0-1); LYMPHOCYTES ABSOLUTE AUTO 1.77 K/mm3 (0.84-5.20); LYMPHOCYTES PERCENT AUTO 25 % (21-46); MONOCYTES ABSOLUTE AUTO 0.68 K/mm3 (0.16-1.47); MONOCYTES PERCENT AUTO 10 % (4-13); Mean Corpuscular HGB Conc 34.3 g/dL (31.5-36.5); Mean Corpuscular Volume 92 fL (80-100); NEUTROPHILS ABSOLUTE AUTO 4.41 K/mm3 (1.96-9.15); NEUTROPHILS PERCENT AUTO 62 % (41-73); NRBC ABSOLUTE 0.00 K/mm3 (0.00-0.02); NRBC Auto 0.0 /100 WBC (0.0-0.2); Platelet Count 266 K/mm3 (150-400); RDW Coefficient Variation 13.2 % (11.7-14.2); RDW Standard Deviation 44.1 fL (35.1-46.3)
[2024-12-24 15:20] LABS: Alanine Aminotransfer (ALT/SGP 24.0 U/L (12-78); Albumin, Blood 3.8 g/dL (3.4-5.0); Albumin/Globulin Ratio 1.4 (0.8-1.8); Anion Gap 11.0 mmol/L (3-11); Aspartate Aminotrans (AST/SGOT 11.0 U/L (12-37); Bilirubin, Total 0.6 mg/dL (0.1-1.0); Blood Urea Nitrogen 26.0 mg/dL (8-24); CO2, Blood 26.0 mmol/L (21-32); Calcium, Blood 9.5 mg/dL (8.5-10.1); Chloride, Blood 105.0 mmol/L (98-108); Creatinine, Blood 1.51 mg/dL (0.60-1.20); Globulin, Blood 2.8 g/dL (2.2-4.0); Glucose, Blood 93.0 mg/dL (70-99); Potassium, Blood 4.4 mmol/L (3.5-5.5); Sodium, Blood 138.0 mmol/L (136-145); Total Protein, Blood 6.6 g/dL (6.4-8.2)
== END ==
LOC: LAB 15:03 → LAB SHORT 15:03
PROVIDERS: Chiropractor
DX: R07.9 Chest pain, unspecified (principal)
CPT/HCPCS: 80053; 84484; 85025